=== PATIENT | male | born 1970 | race African-American/Black ===

== ENCOUNTER 2018-03-22 14:17 | Inpatient (IN) | payer SELFPAY ==
[2018-03-22] MEDS ORDERED: Diltiazem 25 MG/5 ML SDV IVPUSH ONE (14:31)
[2018-03-22] MEDS ORDERED: Sodium Chloride 0.9% 10 ML Syringe FLUSH PRN ×2 (14:31→17:54)
[2018-03-22] MEDS ORDERED: Sodium Chloride 0.9% 2.5 ML Syringe FLUSH PRN ×2 (14:31→17:54)
[2018-03-22] MEDS ORDERED: Sodium Chloride 0.9% 1,000 ML IV ONE (14:31)
[2018-03-22] MEDS ORDERED: Enoxaparin 60 MG/0.6 ML Syringe SUBCUT ONE (14:32)
--- NOTE | 2018-03-22 14:37 | EDM.PDOC ---
ED HPI GENERAL MEDICAL PROBLEM - General Chief Complaint: Cardiovascular Problem Stated Complaint: CHEST PAIN Time Seen by Provider: 03/22/18 14:24 - History of Present Illness INITIAL COMMENTS - FREE TEXT/NARRATIVE: HISTORY AND PHYSICAL: History of present illness: The patient is a 47-year-old male who presents with complaints of awakening from a nap approximately 1 hour ago and having palpitations and racing heart. He says that a similar episode happened about 8 years ago and had an echocardiogram and was told that he had an enlarged heart and he was given medication to slow his heart rate down. He was a discharge with blood thinners but no other medications and he said that something happened with his job that he could not get the medications anymore and he has not been on them. He says that he has not had any evaluation for the last 8 years. The patient denies any other existing medical problems and denies large amounts of caffeine use but says he drinks a large amount of alcohol every night. He smokes cigarettes and occasionally smokes marijuana but no other drugs. The patient said when this started he was getting up out of bed and he was not lightheaded or dizzy and has no discomfort shortness of breath chest pain abdominal pain nausea or vomiting with it. He's had no recent systemic complaints such as fevers chills vomiting or diarrhea and has been eating normally. Currently he seems very anxious in the room and says he does feel anxious about what happening but he has no pain or discomfort in his chest. Review of systems: As per history of present illness and below otherwise all systems reviewed and negative. Past medical history: As per history of present illness and as reviewed below otherwise noncontributory. Surgical history: As per history of present illness and as reviewed below otherwise noncontributory. Social history: No reported history of drug or alcohol abuse. Family history: As per history of present illness and as reviewed below otherwise noncontributory. Physical exam: General: Well-developed well-nourished man who is nontoxic and speaking clearly and easily in the ED. He seems somewhat anxious but he is not tremulous. He is very distressed with IV placement and with any manipulation. Vital signs are noted by me HEENT: Atraumatic, normocephalic, pupils reactive, negative for conjunctival pallor or scleral icterus, mucous membranes moist, throat clear, neck supple, nontender, trachea midline. Lungs: Clear to auscultation, breath sounds equal bilaterally, chest nontender. No work of breathing or stridor Heart: S1S2, irregularly irregular with rapid rate ranging from 130s to 150s on my evaluation, no overt murmur is appreciated negative for clicks, rubs, or JVD. Abdomen: Soft, nondistended, nontender. Negative for masses or hepatosplenomegaly. NABS Pelvis: Deferred Genitourinary: Deferred. Rectal: Deferred. Extremities: Atraumatic, negative for cords or calf pain. Neurovascular unremarkable. No pedal edema Neuro: Awake, alert, oriented. Cranial nerves II through XII unremarkable. Cerebellum unremarkable. Motor and sensory unremarkable throughout. Exam nonfocal. Patient is not exhibiting any tremulousness Skin: No evidence of any overt rashes or lesions and turgor is normal, no diaphoresis Diagnostics: EKG CBC CMP INR troponin TSH chest x-ray magnesium level alcohol level Therapeutics: IV O2 monitor IV fluids Cardizem Lovenox Cardizem drip banana bag After the Cardizem bolus the patient's heart rate did dip down to 110s and he says that he has no pressure or trouble taking a deep breath but overall he seems somewhat anxious to me. I will give him some Ativan. On my evaluation his heart rate does bounce around and it will go up to the 120s 130s but not be sustained. I will having a low dose Cardizem drip and plan for admission. I talked to the patient about his need for admission and he states understanding. 1622: Case is discussed with our hospitalist Dr Handley who accepts the patient for admission and is aware that he is on a Cardizem drip. Impression: New A. fib with RVR, history of cardiomyopathy and alcohol use/abuse Definitive disposition and diagnosis as appropriate pending reevaluation and review of above. - Related Data Allergies Allergy/AdvReac Type Severity Reaction Status Date / Time No Known Allergies Allergy Verified 03/22/18 14:28 Home Meds: Home Meds . [No Known Home Meds] 03/22/18 [History] Past Medical History Cardiovascular History: Reports: Other (See Below) Other Cardiovascular History: enlarged heart - Infectious Disease History Infectious Disease History: Reports: Chicken Pox Social & Family History - Family History Family Medical History: Noncontributory - Tobacco Use Smoking Status *Q: Current Every Day Smoker Years of Tobacco use: 20 Packs/Tins Daily: 1 - Recreational Drug Use Recreational Drug Use: No ED ROS GENERAL - Review of Systems Review Of Systems: ROS reveals no pertinent complaints other than HPI. ED EXAM, GENERAL - Physical Exam Exam: See Below (See dictation) Course - Vital Signs Last Recorded V/S: Last Vital Signs Temp 35.3 C 03/22/18 14:26 Pulse 110 H 03/22/18 15:15 Resp 16 03/22/18 15:15 BP 108/70 03/22/18 15:15 Pulse Ox 99 03/22/18 15:15 - Orders/Labs/Meds Orders: Active Orders 24 hr Category Date Time Status Patient Status [ADT] Stat ADT 03/22/18 16:23 Ordered Cardiac Monitoring [RC] . DIRECTED Care 03/22/18 14:31 Active EKG Documentation Completion [RC] STAT Care 03/22/18 14:31 Active Oxygen Therapy, ED [RC] ASDIRECTED Care 03/22/18 14:31 Active Pulse Oximetry [RC] ASDIRECTED Care 03/22/18 14:31 Active Chest 1V Frontal [CR] Stat Exams 03/22/18 14:32 Taken COMPREHENSIVE METABOLIC PN,CMP [CHEM] Stat Lab 03/22/18 14:30 Results ETHANOL BLOOD MEDICAL [CHEM] Stat Lab 03/22/18 14:30 Results MAGNESIUM [CHEM] Stat Lab 03/22/18 14:30 Results TROPONIN I [CHEM] Stat Lab 03/22/18 14:30 Results TSH [CHEM] Stat Lab 03/22/18 14:30 Results Diltiazem 125 mg Med 03/22/18 15:51 Active Sodium Chloride 0.9% [Normal Saline] 100 ml IV NOW Sodium Chloride 0.9% [Saline Flush] Med 03/22/18 14:31 Active 10 ml FLUSH ASDIRECTED PRN Sodium Chloride 0.9% [Saline Flush] Med 03/22/18 14:31 Active 2.5 ml FLUSH ASDIRECTED PRN Saline Lock Insert [OM.PC] Stat Oth 03/22/18 14:31 Ordered Medication Orders Diltiazem HCl 125 mg/ Sodium (Chloride) 125 mls @ 5 mls/hr IV NOW ONE; Protocol Stop: 03/23/18 16:50 Sodium Chloride (Saline Flush) 10 ml FLUSH ASDIRECTED PRN PRN Reason: Keep Vein Open Sodium Chloride (Saline Flush) 2.5 ml FLUSH ASDIRECTED PRN PRN Reason: Keep Vein Open Labs: Laboratory Tests 03/22/18 03/22/18 03/22/18 Range/Units 14:30 14:30 14:30 WBC 12.53 H (4.0-11.0) K/uL RBC 4.73 (4.50-5.90) M/uL Hgb 15.0 (13.0-17.0) g/dL Hct 44.2 (38.0-50.0) % MCV 93.4 (80.0-98.0) fL MCH 31.7 (27.0-32.0) pg MCHC 33.9 (31.0-37.0) g/dL RDW Std Deviation 47.9 (28.0-62.0) fl RDW Coeff of Bakari 14 (11.0-15.0) % Plt Count 174 (150-400) K/uL MPV 10.50 (7.40-12.00) fL Neut % (Auto) 34.9 L (48.0-80.0) % Lymph % (Auto) 56.0 H (16.0-40.0) % [place] % (Auto) 7.8 (0.0-15.0) % Eos % (Auto) 1.1 (0.0-7.0) % Baso % (Auto) 0.2 (0.0-1.5) % Neut # (Auto) 4.4 (1.4-5.7) K/uL Lymph # (Auto) 7.0 H (0.6-2.4) K/uL [place] # (Auto) 1.0 H (0.0-0.8) K/uL Eos # (Auto) 0.1 (0.0-0.7) K/uL Baso # (Auto) 0.0 (0.0-0.1) K/uL Nucleated RBC % 0.0 /100WBC Nucleated RBCs # 0 K/uL INR 1.00 Sodium 139 (136-148) mmol/L Potassium 3.5 (3.5-5.1) mmol/L Chloride 104 (98-107) mmol/L Carbon Dioxide 26.1 (21.0-32.0) mmol/L BUN 9 (7.0-18.0) mg/dL Creatinine 1.3 (0.8-1.3) mg/dL Est Cr Clr Drug Dosing 61.11 mL/min Estimated GFR (MDRD) > 60.0 ml/min Glucose 183 H (74-106) mg/dL Calcium 8.6 (8.5-10.1) mg/dL Magnesium 1.8 (1.8-2.4) mg/dL Total Bilirubin 0.3 (0.2-1.0) mg/dL ALT 44 (14-63) IU/L Alkaline Phosphatase 69 (46-116) U/L Troponin I < 0.050 (0.000-0.056) ng/mL Total Protein 7.6 (6.4-8.2) g/dL Albumin 3.7 (3.4-5.0) g/dL Globulin 3.9 H (2.0-3.5) g/dL Albumin/Globulin Ratio 1.0 L (1.3-2.8) TSH 3rd Generation 2.43 (0.36-3.74) uIU/mL Ethyl Alcohol <3 mg/dL Meds: Medications Generic Name Dose Route Start Last Admin Trade Name Freq PRN Reason Stop Dose Admin Diltiazem HCl 125 mg/ Sodium 125 mls @ 5 mls/hr 03/22/18 15:51 Chloride IV 03/23/18 16:50 NOW ONE Protocol 5 MG/HR Sodium Chloride 10 ml 03/22/18 14:31 Saline Flush FLUSH ASDIRECTED PRN Keep Vein Open Sodium Chloride 2.5 ml 03/22/18 14:31 Saline Flush FLUSH ASDIRECTED PRN Keep Vein Open Discontinued Medications Generic Name Dose Route Start Last Admin Trade Name Freq PRN Reason Stop Dose Admin Diltiazem HCl 20 mg 03/22/18 14:31 03/22/18 14:42 Diltiazem IVPUSH 03/22/18 14:32 20 mg ONETIME ONE Administration Enoxaparin Sodium 60 mg 03/22/18 14:32 03/22/18 14:58 Lovenox SUBCUT 03/22/18 14:33 60 mg ONETIME ONE Administration Sodium Chloride 1,000 mls @ 999 mls/hr 03/22/18 14:31 03/22/18 14:43 Normal Saline IV 03/22/18 15:31 999 mls/hr STAT ONE Administration Lorazepam 1 mg 03/22/18 15:51 03/22/18 16:13 Ativan IVPUSH 03/22/18 15:52 1 mg ONETIME ONE Administration Departure - Departure Time of Disposition: 16:25 Disposition: Refer to Observation Condition: Good Clinical Impression: Atrial fibrillation with RVR Referrals: PCP,None [Primary Care Provider] - Forms: ED Department Discharge - My Orders Last 24 Hours: My Active Orders 03/22/18 14:30 COMPREHENSIVE METABOLIC PN,CMP [CHEM] Stat ETHANOL BLOOD MEDICAL [CHEM] Stat MAGNESIUM [CHEM] Stat TROPONIN I [CHEM] Stat TSH [CHEM] Stat 03/22/18 14:31 Cardiac Monitoring [RC] . DIRECTED EKG Documentation Completion [RC] STAT Oxygen Therapy, ED [RC] ASDIRECTED Pulse Oximetry [RC] ASDIRECTED Sodium Chloride 0.9% [Saline Flush] 10 ml FLUSH ASDIRECTED PRN Sodium Chloride 0.9% [Saline Flush] 2.5 ml FLUSH ASDIRECTED PRN Saline Lock Insert [OM.PC] Stat 03/22/18 14:32 Chest 1V Frontal [CR] Stat 03/22/18 15:51 Diltiazem 125 mg Sodium Chloride 0.9% [Normal Saline] 100 ml IV NOW 03/22/18 16:23 Patient Status [ADT] Stat - Assessment/Plan Last 24 Hours: My Active Orders 03/22/18 14:30 COMPREHENSIVE METABOLIC PN,CMP [CHEM] Stat ETHANOL BLOOD MEDICAL [CHEM] Stat MAGNESIUM [CHEM] Stat TROPONIN I [CHEM] Stat TSH [CHEM] Stat 03/22/18 14:31 Cardiac Monitoring [RC] . DIRECTED EKG Documentation Completion [RC] STAT Oxygen Therapy, ED [RC] ASDIRECTED Pulse Oximetry [RC] ASDIRECTED Sodium Chloride 0.9% [Saline Flush] 10 ml FLUSH ASDIRECTED PRN Sodium Chloride 0.9% [Saline Flush] 2.5 ml FLUSH ASDIRECTED PRN Saline Lock Insert [OM.PC] Stat 03/22/18 14:32 Chest 1V Frontal [CR] Stat 03/22/18 15:51 Diltiazem 125 mg Sodium Chloride 0.9% [Normal Saline] 100 ml IV NOW 03/22/18 16:23 Patient Status [ADT] Stat
[2018-03-22 15:43] LABS: CHLORIDE,CL 104 mmol/L (98-107); SODIUM,NA 139 mmol/L (136-148)
[2018-03-22] MEDS ORDERED: LORazepam 2 MG/ML SDV IVPUSH ONE (15:51)
[2018-03-22] MEDS ORDERED: Diltiazem 125 MG in Sodium Chloride 0.9% 100 ML IV ONE (15:51)
[2018-03-22] MEDS ORDERED: MVI, Adult with Vitamin K 10 ML, Thiamine 100 MG, Folic Acid 1 MG in Sodium Chloride 0.... IV ONE ×4 (16:26)
--- NOTE | 2018-03-22 16:49 | CR ---
EXAM DATE: 03/22/18 PATIENT'S AGE: 47 Patient: CAMI MISHRA Facility: [place], [place] Site . Site : [id number] Study: XRay Chest [id number] 3:05:33 PM Ordering Physician: Enriqueta Butler Final Report: INDICATION: Atrial fibrillation TECHNIQUE: Chest 1 view COMPARISON: None FINDINGS: Cardiovascular and mediastinum: Heart size and vasculature are normal in caliber and appearance. Lungs and pleural spaces: Lungs are clear. No sign of infiltrate or mass. No sign of pleural effusion. No pneumothorax. Bones and soft tissues: No significant findings. IMPRESSION: No acute or significant findings. Dictated by Jong iKm MD @ Mar 22 2018 3:43PM (Electronic Signature) Report Signed by Proxy. VJ
[2018-03-22] MEDS ORDERED: Albuterol/Ipratropium 3.0-0.5 MG/3 ML Neb Soln NEB PRN (17:54)
[2018-03-22] MEDS ORDERED: Acetaminophen 325 MG Tab PO PRN (17:54)
[2018-03-22] MEDS ORDERED: Morphine 2 MG/ML Syringe IVPUSH PRN (17:54)
--- NOTE | 2018-03-22 20:20 | PCM.HP ---
H&P History of Present Illness - General Date of Service: 03/22/18 Admit Problem/Dx: Admission Diagnosis/Problem Admission Diagnosis/Problem Atrial fibrillation Source of Information: Patient History Limitations: Reports: No Limitations - History of Present Illness Initial Comments - Free Text/Narative: Patient 47 years old man presented to emergency room because he felt his heart was beating very fast and he was feeling dizziness , sweaty , lightheaded. Patient also had sensation of pressure in the chest for about half an hour 4and 10 in intensity, no radiation, which resolved. Patient smokes pack of cigarettes a day for the past 20 years and he drinks about 1/2-1 pint of vodka a day for the past 30 years. 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 Onset of Symptoms: Reports: Today Duration of Symptoms: Reports: Hour(s): Location: Reports: Chest - Related Data Allergies/Adverse Reactions: Allergies Allergy/AdvReac Type Severity Reaction Status Date / Time No Known Allergies Allergy Verified 03/22/18 14:28 Home Medications: Home Meds . [No Known Home Meds] 03/22/18 [History] Past Medical History Cardiovascular History: Reports: Other (See Below) Other Cardiovascular History: enlarged heart Respiratory History: Reports: Other (See Below) Other Respiratory History: current everyday smoker - Infectious Disease History Infectious Disease History: Reports: Chicken Pox Social & Family History - Family History Family Medical History: Noncontributory - Tobacco Use Smoking Status *Q: Current Every Day Smoker Years of Tobacco use: 20 Packs/Tins Daily: 1 - Recreational Drug Use Recreational Drug Use: No H&P Review of Systems - Review of Systems: Review Of Systems: See Below General: Reports: No Symptoms HEENT: Reports: No Symptoms Pulmonary: Reports: Shortness of Breath Cardiovascular: Reports: Dyspnea on Exertion, Lightheadedness. Denies: Chest Pain Gastrointestinal: Reports: No Symptoms Genitourinary: Reports: No Symptoms Musculoskeletal: Reports: No Symptoms Skin: Reports: No Symptoms Exam - Exam Exam: See Below - Vital Signs Vital Signs: Last Vital Signs Temp 97.8 F 03/22/18 18:20 Pulse 114 H 03/22/18 19:00 Resp 20 03/22/18 19:00 BP 104/68 03/22/18 19:00 Pulse Ox 97 03/22/18 19:00 Weight: 160 lb 11.2 oz - Exam General: Alert, Oriented HEENT: Conjunctiva Clear, Hearing Intact Neck: Supple, Trachea Midline Lungs: Clear to Auscultation Cardiovascular: Normal S1, Normal S2, Irregular Rhythm, Tachycardia GI/Abdominal Exam: Normal Bowel Sounds (Male) Exam: No Hernia, Normal Inspection Back Exam: Normal Inspection Extremities: Normal Inspection - Patient Data Lab Results Last 24 hrs: Laboratory Results - last 24 hr 03/22/18 03/22/18 03/22/18 Range/Units 14:30 14:30 14:30 WBC 12.53 H (4.0-11.0) K/uL RBC 4.73 (4.50-5.90) M/uL Hgb 15.0 (13.0-17.0) g/dL Hct 44.2 (38.0-50.0) % MCV 93.4 (80.0-98.0) fL MCH 31.7 (27.0-32.0) pg MCHC 33.9 (31.0-37.0) g/dL RDW Std Deviation 47.9 (28.0-62.0) fl RDW Coeff of Bakari 14 (11.0-15.0) % Plt Count 174 (150-400) K/uL MPV 10.50 (7.40-12.00) fL Neut % (Auto) 34.9 L (48.0-80.0) % Lymph % (Auto) 56.0 H (16.0-40.0) % Hand % (Auto) 7.8 (0.0-15.0) % Eos % (Auto) 1.1 (0.0-7.0) % Baso % (Auto) 0.2 (0.0-1.5) % Neut # (Auto) 4.4 (1.4-5.7) K/uL Lymph # (Auto) 7.0 H (0.6-2.4) K/uL Hand # (Auto) 1.0 H (0.0-0.8) K/uL Eos # (Auto) 0.1 (0.0-0.7) K/uL Baso # (Auto) 0.0 (0.0-0.1) K/uL Nucleated RBC % 0.0 /100WBC Nucleated RBCs # 0 K/uL INR 1.00 Sodium 139 (136-148) mmol/L Potassium 3.5 (3.5-5.1) mmol/L Chloride 104 (98-107) mmol/L Carbon Dioxide 26.1 (21.0-32.0) mmol/L BUN 9 (7.0-18.0) mg/dL Creatinine 1.3 (0.8-1.3) mg/dL Est Cr Clr Drug Dosing 61.11 mL/min Estimated GFR (MDRD) > 60.0 ml/min Glucose 183 H (74-106) mg/dL Calcium 8.6 (8.5-10.1) mg/dL Magnesium 1.8 (1.8-2.4) mg/dL Total Bilirubin 0.3 (0.2-1.0) mg/dL AST 31 (15-37) IU/L ALT 44 (14-63) IU/L Alkaline Phosphatase 69 (46-116) U/L Troponin I < 0.050 (0.000-0.056) ng/mL Total Protein 7.6 (6.4-8.2) g/dL Albumin 3.7 (3.4-5.0) g/dL Globulin 3.9 H (2.0-3.5) g/dL Albumin/Globulin Ratio 1.0 L (1.3-2.8) TSH 3rd Generation 2.43 (0.36-3.74) uIU/mL Ethyl Alcohol <3 mg/dL Result Diagrams: 03/22/18 14:30 03/22/18 14:30 EKG INTERPRETATION EKG Date: 03/22/18 Time: 01:39 Rhythm: A-Fib QRS: Normal ST-T: Normal - Problem List (1) Chest tightness or pressure SNOMED Code(s): 98363580 ICD Code: R07.89 - OTHER CHEST PAIN Status: Acute Current Visit: Yes (2) Atrial fibrillation with RVR SNOMED Code(s): 704222457360240 ICD Code: I48.91 - UNSPECIFIED ATRIAL FIBRILLATION Status: Acute Current Visit: Yes (3) Alcohol abuse SNOMED Code(s): 12697815 ICD Code: F10.10 - ALCOHOL ABUSE, UNCOMPLICATED Status: Acute Current Visit: Yes Problem List Initiated/Reviewed/Updated: Yes Orders Last 24hrs: Active Orders 24 hr Category Date Time Status Patient Status [ADT] Stat ADT 03/22/18 16:41 Active Cardiac Monitoring [RC] . DIRECTED Care 03/22/18 14:31 Active RT Aerosol Therapy [RC] ASDIRECTED Care 03/22/18 17:57 Active 2 Gram Sodium Diet [DIET] Diet 03/22/18 Dinner Active Echo 2D wo Cont [US] Stat Exams 03/22/18 17:58 Ordered CBC W/O DIFF,HEMOGRAM [HEME] AM Lab 03/23/18 05:11 Ordered CBC W/O DIFF,HEMOGRAM [HEME] AM Lab 03/24/18 05:11 Ordered CBC W/O DIFF,HEMOGRAM [HEME] AM Lab 03/25/18 05:11 Ordered CBC W/O DIFF,HEMOGRAM [HEME] AM Lab 03/26/18 05:11 Ordered COMPREHENSIVE METABOLIC PN,CMP [CHEM] AM Lab 03/23/18 05:11 Ordered COMPREHENSIVE METABOLIC PN,CMP [CHEM] AM Lab 03/24/18 05:11 Ordered COMPREHENSIVE METABOLIC PN,CMP [CHEM] AM Lab 03/25/18 05:11 Ordered COMPREHENSIVE METABOLIC PN,CMP [CHEM] AM Lab 03/26/18 05:11 Ordered COMPREHENSIVE METABOLIC PN,CMP [CHEM] AM Lab 03/27/18 05:11 Ordered DRUG SCREEN, URINE [URCHEM] Routine Lab 03/22/18 18:01 Ordered TROPONIN I [CHEM] Q6H Lab 03/22/18 20:30 Ordered TROPONIN I [CHEM] Q6H Lab 03/23/18 02:30 Ordered UA W/O MICROSCOPIC [URIN] Routine Lab 03/22/18 18:01 Ordered Acetaminophen [Tylenol] Med 03/22/18 17:54 Active 650 mg PO Q4H PRN Albuterol/Ipratropium [DuoNeb 3.0-0.5 MG/3 ML] Med 03/22/18 17:54 Active 3 ml NEB Q4HRRT PRN Diltiazem 125 mg Med 03/22/18 15:51 Active Sodium Chloride 0.9% [Normal Saline] 100 ml IV NOW MVI, Adult with Vitamin K [Infuvite Adult] 10 ml Med 03/22/18 16:26 Active Thiamine [Vitamin B-1] 100 mg Folic Acid 1 mg Sodium Chloride 0.9% [Normal Saline] 1,000 ml IV ONETIME Morphine Med 03/22/18 17:54 Active 2 mg IVPUSH Q2H PRN Sodium Chloride 0.9% [Saline Flush] Med 03/22/18 14:31 Active 10 ml FLUSH ASDIRECTED PRN Sodium Chloride 0.9% [Saline Flush] Med 03/22/18 17:54 Active 10 ml FLUSH ASDIRECTED PRN Sodium Chloride 0.9% [Saline Flush] Med 03/22/18 14:31 Active 2.5 ml FLUSH ASDIRECTED PRN Sodium Chloride 0.9% [Saline Flush] Med 03/22/18 17:54 Active 2.5 ml FLUSH ASDIRECTED PRN Peripheral IV Insertion Adult [OM.PC] Routine Oth 03/22/18 17:54 Ordered Saline Lock Insert [OM.PC] Stat Oth 03/22/18 14:31 Ordered Sequential Compression Device [OM.PC] Per Unit Routine Oth 03/22/18 17:55 Ordered Resuscitation Status Routine Resus Stat 03/22/18 17:54 Ordered Medication Orders Acetaminophen (Tylenol) 650 mg PO Q4H PRN PRN Reason: Pain (Mild 1-3)/fever Albuterol/Ipratropium (Duoneb 3.0-0.5 Mg/3 Ml) 3 ml NEB Q4HRRT PRN PRN Reason: Shortness Of Breath/wheezing Diltiazem HCl 125 mg/ Sodium (Chloride) 125 mls @ 5 mls/hr IV NOW ONE; Protocol Stop: 03/23/18 16:50 Last Admin: 03/22/18 16:56 Dose: 5 mg/hr, 5 mls/hr Multivitamins/Minerals 10 ml/Thiamine HCl 100 mg/ Folic Acid 1 mg/ Sodium Chloride 1,011.2 mls @ 125 mls/hr IV ONETIME ONE Stop: 03/23/18 00:31 Last Admin: 03/22/18 16:53 Dose: 125 mls/hr Morphine Sulfate (Morphine) 2 mg IVPUSH Q2H PRN PRN Reason: Pain (severe 7-10) Stop: 03/23/18 17:56 Sodium Chloride (Saline Flush) 10 ml FLUSH ASDIRECTED PRN PRN Reason: Keep Vein Open Sodium Chloride (Saline Flush) 2.5 ml FLUSH ASDIRECTED PRN PRN Reason: Keep Vein Open Sodium Chloride (Saline Flush) 10 ml FLUSH ASDIRECTED PRN PRN Reason: Keep Vein Open Sodium Chloride (Saline Flush) 2.5 ml FLUSH ASDIRECTED PRN PRN Reason: Keep Vein Open Assessment and plan A. fib with RVR Alcohol abuse Chest tightness-resolved Tobacco abuse Plan Will admit patient to observation to telemetry ICU Blaise alexander Cardiac echo, lipid profile, hemoglobin A1c. Cardiology consult Follow-up 3 sets of troponins 6 hours Pressure was consult more than 5 minutes to stop smoking and to stop drinking alcohol
[2018-03-22] MEDS ORDERED: Metoprolol Tartrate 5 MG/5 ML SDV IVPUSH ONE (20:52)
[2018-03-22] MEDS ORDERED: Aspirin 325 MG Tab PO ONE (22:10)
[2018-03-22] MEDS ORDERED: Clopidogrel 75 MG Tab PO ONE (22:33)
[2018-03-22] MEDS ORDERED: atorvaSTATin 40 MG Tab PO ONE (22:33)
[2018-03-22] MEDS ORDERED: Heparin Sodium 5,000 Units/ML Vial IVPUSH ONE (22:54)
[2018-03-22] MEDS: Famotidine 20 MG/2 ML SDV IVPUSH SCH (22:58)
[2018-03-22] MEDS: Heparin Sod,Pork In 0.45% Nacl 25,000 UNIT/500 ML IV.SOLN IV SCH (23:16)
[2018-03-23] MEDS ORDERED: Metoprolol Tartrate 5 MG/5 ML SDV IVPUSH ONE ×2 (04:00→22:00)
[2018-03-23 06:00] LABS: CHLORIDE,CL 107 mmol/L (98-107); SODIUM,NA 138 mmol/L (136-148)
[2018-03-23] MEDS ORDERED: Metoprolol Tartrate 50 MG Tab PO SCH (08:00)
[2018-03-23] MEDS ORDERED: atorvaSTATin 40 MG Tab PO ONE (08:25)
[2018-03-23] MEDS: Clopidogrel 75 MG Tab PO SCH (10:15)
[2018-03-23] MEDS: Aspirin 325 MG Tab PO SCH (10:15)
[2018-03-23] MEDS: Famotidine 20 MG/2 ML SDV IVPUSH SCH (10:15)
[2018-03-23] MEDS: Clotrimazole 1% Crm 30 GM Tube TOP SCH ×3 (10:33→21:05)
[2018-03-23] MEDS ORDERED: Furosemide 40 MG/4 ML VIAL IVPUSH ONE ×3 (12:28→22:11)
--- NOTE | 2018-03-23 12:49 | PCM.PN ---
- General Info Date of Service: 03/23/18 Subjective Update: Patient had some sortness of breath today . His troponins were trending down . HR not well controlled. Cardiology recommended lasix 40 mg iv one dose and he was started on metoprolol 50 mgpo q 8 h . HR still not controlled . As per tax associate attorney his EF is 60 percent and his elevations in troponins is due to increase oxygen demand. BNP 385. - Review of Systems General: Reports: No Symptoms HEENT: Reports: No Symptoms Pulmonary: Reports: Shortness of Breath Cardiovascular: Reports: No Symptoms Gastrointestinal: Reports: No Symptoms Genitourinary: Reports: No Symptoms Musculoskeletal: Reports: No Symptoms Skin: Reports: No Symptoms Neurological: Reports: No Symptoms Psychiatric: Reports: No Symptoms - Patient Data Vitals - Most Recent: Last Vital Signs Temp 97.7 F 03/23/18 12:00 Pulse 117 H 03/23/18 12:00 Resp 20 03/23/18 12:00 BP 133/88 03/23/18 12:00 Pulse Ox 95 03/23/18 12:00 Weight - Most Recent: 163 lb 6.4 oz I&O - Last 24 Hours: Intake & Output 03/22/18 03/23/18 03/23/18 22:59 06:59 14:59 Intake Total 1477 Output Total 450 Balance 1027 Lab Results Last 24 Hours: Laboratory Results - last 24 hr 03/22/18 03/22/18 03/22/18 Range/Units 14:30 14:30 14:30 WBC 12.53 H (4.0-11.0) K/uL RBC 4.73 (4.50-5.90) M/uL Hgb 15.0 (13.0-17.0) g/dL Hct 44.2 (38.0-50.0) % MCV 93.4 (80.0-98.0) fL MCH 31.7 (27.0-32.0) pg MCHC 33.9 (31.0-37.0) g/dL RDW Std Deviation 47.9 (28.0-62.0) fl RDW Coeff of Bakari 14 (11.0-15.0) % Plt Count 174 (150-400) K/uL MPV 10.50 (7.40-12.00) fL Neut % (Auto) 34.9 L (48.0-80.0) % Lymph % (Auto) 56.0 H (16.0-40.0) % Gregg % (Auto) 7.8 (0.0-15.0) % Eos % (Auto) 1.1 (0.0-7.0) % Baso % (Auto) 0.2 (0.0-1.5) % Neut # (Auto) 4.4 (1.4-5.7) K/uL Lymph # (Auto) 7.0 H (0.6-2.4) K/uL Gregg # (Auto) 1.0 H (0.0-0.8) K/uL Eos # (Auto) 0.1 (0.0-0.7) K/uL Baso # (Auto) 0.0 (0.0-0.1) K/uL Nucleated RBC % 0.0 /100WBC Nucleated RBCs # 0 K/uL INR 1.00 APTT (18.6-31.3) SEC Sodium 139 (136-148) mmol/L Potassium 3.5 (3.5-5.1) mmol/L Chloride 104 (98-107) mmol/L Carbon Dioxide 26.1 (21.0-32.0) mmol/L BUN 9 (7.0-18.0) mg/dL Creatinine 1.3 (0.8-1.3) mg/dL Est Cr Clr Drug Dosing 61.11 mL/min Estimated GFR (MDRD) > 60.0 ml/min Glucose 183 H (74-106) mg/dL Hemoglobin A1c (4.5-6.2) % Calcium 8.6 (8.5-10.1) mg/dL Magnesium 1.8 (1.8-2.4) mg/dL Total Bilirubin 0.3 (0.2-1.0) mg/dL AST 31 (15-37) IU/L ALT 44 (14-63) IU/L Alkaline Phosphatase 69 (46-116) U/L Troponin I < 0.050 (0.000-0.056) ng/mL Total Protein 7.6 (6.4-8.2) g/dL Albumin 3.7 (3.4-5.0) g/dL Globulin 3.9 H (2.0-3.5) g/dL Albumin/Globulin Ratio 1.0 L (1.3-2.8) Triglycerides (0-200) mg/dL Cholesterol (50-200) mg/dL LDL Cholesterol, Calc (60-180) mg/dL VLDL Cholesterol (5-55) mg/dL HDL Cholesterol (40-60) mg/dL Cholesterol/HDL Ratio (3.3-6.0) TSH 3rd Generation 2.43 (0.36-3.74) uIU/mL Urine Color Urine Appearance Urine pH (5.0-8.0) Ur Specific [place] (1.001-1.035) Urine Protein (NEGATIVE) mg/dL Urine Glucose (UA) (NEGATIVE) mg/dL Urine Ketones (NEGATIVE) mg/dL Urine Occult Blood (NEGATIVE) Urine Nitrite (NEGATIVE) Urine Bilirubin (NEGATIVE) Urine Urobilinogen (<2.0) EU/dL Ur Leukocyte Esterase (NEGATIVE) Urine Opiates Screen (NEGATIVE) Ur Oxycodone Screen (NEGATIVE) Urine Methadone Screen (NEGATIVE) Ur Barbiturates Screen (NEGATIVE) Ur Phencyclidine Scrn (NEGATIVE) Ur Amphetamine Screen (NEGATIVE) U Methamphetamines Scrn (NEGATIVE) U Benzodiazepines Scrn (NEGATIVE) U Cocaine Metab Screen (NEGATIVE) U Marijuana (THC) Screen (NEGATIVE) Ethyl Alcohol <3 mg/dL 03/22/18 03/22/18 03/22/18 Range/Units 20:10 20:10 21:25 WBC (4.0-11.0) K/uL RBC (4.50-5.90) M/uL Hgb (13.0-17.0) g/dL Hct (38.0-50.0) % MCV (80.0-98.0) fL MCH (27.0-32.0) pg MCHC (31.0-37.0) g/dL RDW Std Deviation (28.0-62.0) fl RDW Coeff of Bakari (11.0-15.0) % Plt Count (150-400) K/uL MPV (7.40-12.00) fL Neut % (Auto) (48.0-80.0) % Lymph % (Auto) (16.0-40.0) % Gregg % (Auto) (0.0-15.0) % Eos % (Auto) (0.0-7.0) % Baso % (Auto) (0.0-1.5) % Neut # (Auto) (1.4-5.7) K/uL Lymph # (Auto) (0.6-2.4) K/uL Gregg # (Auto) (0.0-0.8) K/uL Eos # (Auto) (0.0-0.7) K/uL Baso # (Auto) (0.0-0.1) K/uL Nucleated RBC % /100WBC Nucleated RBCs # K/uL INR APTT (18.6-31.3) SEC Sodium (136-148) mmol/L Potassium (3.5-5.1) mmol/L Chloride (98-107) mmol/L Carbon Dioxide (21.0-32.0) mmol/L BUN (7.0-18.0) mg/dL Creatinine (0.8-1.3) mg/dL Est Cr Clr Drug Dosing mL/min Estimated GFR (MDRD) ml/min Glucose (74-106) mg/dL Hemoglobin A1c (4.5-6.2) % Calcium (8.5-10.1) mg/dL Magnesium (1.8-2.4) mg/dL Total Bilirubin (0.2-1.0) mg/dL AST (15-37) IU/L ALT (14-63) IU/L Alkaline Phosphatase (46-116) U/L Troponin I 0.273 H* (0.000-0.056) ng/mL Total Protein (6.4-8.2) g/dL Albumin (3.4-5.0) g/dL Globulin (2.0-3.5) g/dL Albumin/Globulin Ratio (1.3-2.8) Triglycerides (0-200) mg/dL Cholesterol (50-200) mg/dL LDL Cholesterol, Calc (60-180) mg/dL VLDL Cholesterol (5-55) mg/dL HDL Cholesterol (40-60) mg/dL Cholesterol/HDL Ratio (3.3-6.0) TSH 3rd Generation (0.36-3.74) uIU/mL Urine Color YELLOW Urine Appearance CLEAR Urine pH 6.0 (5.0-8.0) Ur Specific [place] 1.025 (1.001-1.035) Urine Protein 100 (NEGATIVE) mg/dL Urine Glucose (UA) NEGATIVE (NEGATIVE) mg/dL Urine Ketones NEGATIVE (NEGATIVE) mg/dL Urine Occult Blood NEGATIVE (NEGATIVE) Urine Nitrite NEGATIVE (NEGATIVE) Urine Bilirubin NEGATIVE (NEGATIVE) Urine Urobilinogen 0.2 (<2.0) EU/dL Ur Leukocyte Esterase NEGATIVE (NEGATIVE) Urine Opiates Screen NEGATIVE (NEGATIVE) Ur Oxycodone Screen NEGATIVE (NEGATIVE) Urine Methadone Screen NEGATIVE (NEGATIVE) Ur Barbiturates Screen NEGATIVE (NEGATIVE) Ur Phencyclidine Scrn NEGATIVE (NEGATIVE) Ur Amphetamine Screen NEGATIVE (NEGATIVE) U Methamphetamines Scrn NEGATIVE (NEGATIVE) U Benzodiazepines Scrn NEGATIVE (NEGATIVE) U Cocaine Metab Screen NEGATIVE (NEGATIVE) U Marijuana (THC) Screen NEGATIVE (NEGATIVE) Ethyl Alcohol mg/dL 03/22/18 03/23/18 03/23/18 Range/Units 22:48 02:35 05:30 WBC 9.27 (4.0-11.0) K/uL RBC 4.26 L (4.50-5.90) M/uL Hgb 13.3 (13.0-17.0) g/dL Hct 39.6 (38.0-50.0) % MCV 93.0 (80.0-98.0) fL MCH 31.2 (27.0-32.0) pg MCHC 33.6 (31.0-37.0) g/dL RDW Std Deviation 47.1 (28.0-62.0) fl RDW Coeff of Bakari 14 (11.0-15.0) % Plt Count 146 L (150-400) K/uL MPV 10.10 (7.40-12.00) fL Neut % (Auto) (48.0-80.0) % Lymph % (Auto) (16.0-40.0) % Gregg % (Auto) (0.0-15.0) % Eos % (Auto) (0.0-7.0) % Baso % (Auto) (0.0-1.5) % Neut # (Auto) (1.4-5.7) K/uL Lymph # (Auto) (0.6-2.4) K/uL Gregg # (Auto) (0.0-0.8) K/uL Eos # (Auto) (0.0-0.7) K/uL Baso # (Auto) (0.0-0.1) K/uL Nucleated RBC % 0.0 /100WBC Nucleated RBCs # 0 K/uL INR APTT 29.3 (18.6-31.3) SEC Sodium (136-148) mmol/L Potassium (3.5-5.1) mmol/L Chloride (98-107) mmol/L Carbon Dioxide (21.0-32.0) mmol/L BUN (7.0-18.0) mg/dL Creatinine (0.8-1.3) mg/dL Est Cr Clr Drug Dosing mL/min Estimated GFR (MDRD) ml/min Glucose (74-106) mg/dL Hemoglobin A1c (4.5-6.2) % Calcium (8.5-10.1) mg/dL Magnesium (1.8-2.4) mg/dL Total Bilirubin (0.2-1.0) mg/dL AST (15-37) IU/L ALT (14-63) IU/L Alkaline Phosphatase (46-116) U/L Troponin I 0.311 H* (0.000-0.056) ng/mL Total Protein (6.4-8.2) g/dL Albumin (3.4-5.0) g/dL Globulin (2.0-3.5) g/dL Albumin/Globulin Ratio (1.3-2.8) Triglycerides (0-200) mg/dL Cholesterol (50-200) mg/dL LDL Cholesterol, Calc (60-180) mg/dL VLDL Cholesterol (5-55) mg/dL HDL Cholesterol (40-60) mg/dL Cholesterol/HDL Ratio (3.3-6.0) TSH 3rd Generation (0.36-3.74) uIU/mL Urine Color Urine Appearance Urine pH (5.0-8.0) Ur Specific [place] (1.001-1.035) Urine Protein (NEGATIVE) mg/dL Urine Glucose (UA) (NEGATIVE) mg/dL Urine Ketones (NEGATIVE) mg/dL Urine Occult Blood (NEGATIVE) Urine Nitrite (NEGATIVE) Urine Bilirubin (NEGATIVE) Urine Urobilinogen (<2.0) EU/dL Ur Leukocyte Esterase (NEGATIVE) Urine Opiates Screen (NEGATIVE) Ur Oxycodone Screen (NEGATIVE) Urine Methadone Screen (NEGATIVE) Ur Barbiturates Screen (NEGATIVE) Ur Phencyclidine Scrn (NEGATIVE) Ur Amphetamine Screen (NEGATIVE) U Methamphetamines Scrn (NEGATIVE) U Benzodiazepines Scrn (NEGATIVE) U Cocaine Metab Screen (NEGATIVE) U Marijuana (THC) Screen (NEGATIVE) Ethyl Alcohol mg/dL 03/23/18 03/23/18 03/23/18 Range/Units 05:30 05:30 05:30 WBC (4.0-11.0) K/uL RBC (4.50-5.90) M/uL Hgb (13.0-17.0) g/dL Hct (38.0-50.0) % MCV (80.0-98.0) fL MCH (27.0-32.0) pg MCHC (31.0-37.0) g/dL RDW Std Deviation (28.0-62.0) fl RDW Coeff of Bakari (11.0-15.0) % Plt Count (150-400) K/uL MPV (7.40-12.00) fL Neut % (Auto) (48.0-80.0) % Lymph % (Auto) (16.0-40.0) % Gregg % (Auto) (0.0-15.0) % Eos % (Auto) (0.0-7.0) % Baso % (Auto) (0.0-1.5) % Neut # (Auto) (1.4-5.7) K/uL Lymph # (Auto) (0.6-2.4) K/uL Gregg # (Auto) (0.0-0.8) K/uL Eos # (Auto) (0.0-0.7) K/uL Baso # (Auto) (0.0-0.1) K/uL Nucleated RBC % /100WBC Nucleated RBCs # K/uL INR APTT (18.6-31.3) SEC Sodium 138 (136-148) mmol/L Potassium 3.9 (3.5-5.1) mmol/L Chloride 107 (98-107) mmol/L Carbon Dioxide 26.1 (21.0-32.0) mmol/L BUN 7 (7.0-18.0) mg/dL Creatinine 1.0 (0.8-1.3) mg/dL Est Cr Clr Drug Dosing 82.41 mL/min Estimated GFR (MDRD) > 60.0 ml/min Glucose 103 (74-106) mg/dL Hemoglobin A1c 6.0 (4.5-6.2) % Calcium 8.5 (8.5-10.1) mg/dL Magnesium (1.8-2.4) mg/dL Total Bilirubin 0.4 (0.2-1.0) mg/dL AST 18 (15-37) IU/L ALT 32 (14-63) IU/L Alkaline Phosphatase 59 (46-116) U/L Troponin I (0.000-0.056) ng/mL Total Protein 6.4 (6.4-8.2) g/dL Albumin 3.1 L (3.4-5.0) g/dL Globulin 3.3 (2.0-3.5) g/dL Albumin/Globulin Ratio 0.9 L (1.3-2.8) Triglycerides 261 H (0-200) mg/dL Cholesterol 157 (50-200) mg/dL LDL Cholesterol, Calc 77 (60-180) mg/dL VLDL Cholesterol 52 (5-55) mg/dL HDL Cholesterol 28 L (40-60) mg/dL Cholesterol/HDL Ratio 5.6 (3.3-6.0) TSH 3rd Generation (0.36-3.74) uIU/mL Urine Color Urine Appearance Urine pH (5.0-8.0) Ur Specific [place] (1.001-1.035) Urine Protein (NEGATIVE) mg/dL Urine Glucose (UA) (NEGATIVE) mg/dL Urine Ketones (NEGATIVE) mg/dL Urine Occult Blood (NEGATIVE) Urine Nitrite (NEGATIVE) Urine Bilirubin (NEGATIVE) Urine Urobilinogen (<2.0) EU/dL Ur Leukocyte Esterase (NEGATIVE) Urine Opiates Screen (NEGATIVE) Ur Oxycodone Screen (NEGATIVE) Urine Methadone Screen (NEGATIVE) Ur Barbiturates Screen (NEGATIVE) Ur Phencyclidine Scrn (NEGATIVE) Ur Amphetamine Screen (NEGATIVE) U Methamphetamines Scrn (NEGATIVE) U Benzodiazepines Scrn (NEGATIVE) U Cocaine Metab Screen (NEGATIVE) U Marijuana (THC) Screen (NEGATIVE) Ethyl Alcohol mg/dL 03/23/18 03/23/18 03/23/18 Range/Units 05:30 05:30 09:12 WBC (4.0-11.0) K/uL RBC (4.50-5.90) M/uL Hgb (13.0-17.0) g/dL Hct (38.0-50.0) % MCV (80.0-98.0) fL MCH (27.0-32.0) pg MCHC (31.0-37.0) g/dL RDW Std Deviation (28.0-62.0) fl RDW Coeff of Bakari (11.0-15.0) % Plt Count (150-400) K/uL MPV (7.40-12.00) fL Neut % (Auto) (48.0-80.0) % Lymph % (Auto) (16.0-40.0) % Gregg % (Auto) (0.0-15.0) % Eos % (Auto) (0.0-7.0) % Baso % (Auto) (0.0-1.5) % Neut # (Auto) (1.4-5.7) K/uL Lymph # (Auto) (0.6-2.4) K/uL Gregg # (Auto) (0.0-0.8) K/uL Eos # (Auto) (0.0-0.7) K/uL Baso # (Auto) (0.0-0.1) K/uL Nucleated RBC % /100WBC Nucleated RBCs # K/uL INR 1.06 APTT 50.1 H (18.6-31.3) SEC Sodium (136-148) mmol/L Potassium (3.5-5.1) mmol/L Chloride (98-107) mmol/L Carbon Dioxide (21.0-32.0) mmol/L BUN (7.0-18.0) mg/dL Creatinine (0.8-1.3) mg/dL Est Cr Clr Drug Dosing mL/min Estimated GFR (MDRD) ml/min Glucose (74-106) mg/dL Hemoglobin A1c (4.5-6.2) % Calcium (8.5-10.1) mg/dL Magnesium (1.8-2.4) mg/dL Total Bilirubin (0.2-1.0) mg/dL AST (15-37) IU/L ALT (14-63) IU/L Alkaline Phosphatase (46-116) U/L Troponin I 0.187 H* (0.000-0.056) ng/mL Total Protein (6.4-8.2) g/dL Albumin (3.4-5.0) g/dL Globulin (2.0-3.5) g/dL Albumin/Globulin Ratio (1.3-2.8) Triglycerides (0-200) mg/dL Cholesterol (50-200) mg/dL LDL Cholesterol, Calc (60-180) mg/dL VLDL Cholesterol (5-55) mg/dL HDL Cholesterol (40-60) mg/dL Cholesterol/HDL Ratio (3.3-6.0) TSH 3rd Generation (0.36-3.74) uIU/mL Urine Color Urine Appearance Urine pH (5.0-8.0) Ur Specific [place] (1.001-1.035) Urine Protein (NEGATIVE) mg/dL Urine Glucose (UA) (NEGATIVE) mg/dL Urine Ketones (NEGATIVE) mg/dL Urine Occult Blood (NEGATIVE) Urine Nitrite (NEGATIVE) Urine Bilirubin (NEGATIVE) Urine Urobilinogen (<2.0) EU/dL Ur Leukocyte Esterase (NEGATIVE) Urine Opiates Screen (NEGATIVE) Ur Oxycodone Screen (NEGATIVE) Urine Methadone Screen (NEGATIVE) Ur Barbiturates Screen (NEGATIVE) Ur Phencyclidine Scrn (NEGATIVE) Ur Amphetamine Screen (NEGATIVE) U Methamphetamines Scrn (NEGATIVE) U Benzodiazepines Scrn (NEGATIVE) U Cocaine Metab Screen (NEGATIVE) U Marijuana (THC) Screen (NEGATIVE) Ethyl Alcohol mg/dL 03/23/18 Range/Units 11:53 WBC (4.0-11.0) K/uL RBC (4.50-5.90) M/uL Hgb (13.0-17.0) g/dL Hct (38.0-50.0) % MCV (80.0-98.0) fL MCH (27.0-32.0) pg MCHC (31.0-37.0) g/dL RDW Std Deviation (28.0-62.0) fl RDW Coeff of Bakari (11.0-15.0) % Plt Count (150-400) K/uL MPV (7.40-12.00) fL Neut % (Auto) (48.0-80.0) % Lymph % (Auto) (16.0-40.0) % [place] % (Auto) (0.0-15.0) % Eos % (Auto) (0.0-7.0) % Baso % (Auto) (0.0-1.5) % Neut # (Auto) (1.4-5.7) K/uL Lymph # (Auto) (0.6-2.4) K/uL [place] # (Auto) (0.0-0.8) K/uL Eos # (Auto) (0.0-0.7) K/uL Baso # (Auto) (0.0-0.1) K/uL Nucleated RBC % /100WBC Nucleated RBCs # K/uL INR APTT 40.8 H (18.6-31.3) SEC Sodium (136-148) mmol/L Potassium (3.5-5.1) mmol/L Chloride (98-107) mmol/L Carbon Dioxide (21.0-32.0) mmol/L BUN (7.0-18.0) mg/dL Creatinine (0.8-1.3) mg/dL Est Cr Clr Drug Dosing mL/min Estimated GFR (MDRD) ml/min Glucose (74-106) mg/dL Hemoglobin A1c (4.5-6.2) % Calcium (8.5-10.1) mg/dL Magnesium (1.8-2.4) mg/dL Total Bilirubin (0.2-1.0) mg/dL AST (15-37) IU/L ALT (14-63) IU/L Alkaline Phosphatase (46-116) U/L Troponin I (0.000-0.056) ng/mL Total Protein (6.4-8.2) g/dL Albumin (3.4-5.0) g/dL Globulin (2.0-3.5) g/dL Albumin/Globulin Ratio (1.3-2.8) Triglycerides (0-200) mg/dL Cholesterol (50-200) mg/dL LDL Cholesterol, Calc (60-180) mg/dL VLDL Cholesterol (5-55) mg/dL HDL Cholesterol (40-60) mg/dL Cholesterol/HDL Ratio (3.3-6.0) TSH 3rd Generation (0.36-3.74) uIU/mL Urine Color Urine Appearance Urine pH (5.0-8.0) Ur Specific [place] (1.001-1.035) Urine Protein (NEGATIVE) mg/dL Urine Glucose (UA) (NEGATIVE) mg/dL Urine Ketones (NEGATIVE) mg/dL Urine Occult Blood (NEGATIVE) Urine Nitrite (NEGATIVE) Urine Bilirubin (NEGATIVE) Urine Urobilinogen (<2.0) EU/dL Ur Leukocyte Esterase (NEGATIVE) Urine Opiates Screen (NEGATIVE) Ur Oxycodone Screen (NEGATIVE) Urine Methadone Screen (NEGATIVE) Ur Barbiturates Screen (NEGATIVE) Ur Phencyclidine Scrn (NEGATIVE) Ur Amphetamine Screen (NEGATIVE) U Methamphetamines Scrn (NEGATIVE) U Benzodiazepines Scrn (NEGATIVE) U Cocaine Metab Screen (NEGATIVE) U Marijuana (THC) Screen (NEGATIVE) Ethyl Alcohol mg/dL Med Orders - Current: Current Medications Acetaminophen (Tylenol) 650 mg PO Q4H PRN PRN Reason: Pain (Mild 1-3)/fever Albuterol/Ipratropium (Duoneb 3.0-0.5 Mg/3 Ml) 3 ml NEB Q4HRRT PRN PRN Reason: Shortness Of Breath/wheezing Aspirin (Aspirin) 325 mg PO DAILY [facility] Last Admin: 03/23/18 10:15 Dose: 325 mg Clopidogrel Bisulfate (Plavix) 75 mg PO DAILY [facility] Last Admin: 03/23/18 10:15 Dose: 75 mg Clotrimazole (Lotrimin Af 1% Crm) 1 gm TOP BID [facility] Last Admin: 03/23/18 10:33 Dose: Not Given Famotidine (Pepcid) 20 mg IVPUSH DAILY [facility] Last Admin: 03/23/18 10:15 Dose: 20 mg Diltiazem HCl 125 mg/ Sodium (Chloride) 125 mls @ 5 mls/hr IV NOW ONE; Protocol Stop: 03/23/18 16:50 Last Infusion: 03/23/18 02:30 Dose: 0 mg/hr, 0 mls/hr Heparin Sodium/Sodium Chloride (Heparin-1/2ns 25,000 Units/500) 25,000 unit in 500 mls @ 17.494 mls/hr IV TITRATE [facility]; Protocol Last Admin: 03/22/18 23:16 Dose: 12 units/kg/hr, 17.494 mls/hr Metoprolol Tartrate (Lopressor) 50 mg PO TID [facility] Morphine Sulfate (Morphine) 2 mg IVPUSH Q2H PRN PRN Reason: Pain (severe 7-10) Stop: 03/23/18 17:56 Sodium Chloride (Saline Flush) 10 ml FLUSH ASDIRECTED PRN PRN Reason: Keep Vein Open Sodium Chloride (Saline Flush) 2.5 ml FLUSH ASDIRECTED PRN PRN Reason: Keep Vein Open Sodium Chloride (Saline Flush) 10 ml FLUSH ASDIRECTED PRN PRN Reason: Keep Vein Open Sodium Chloride (Saline Flush) 2.5 ml FLUSH ASDIRECTED PRN PRN Reason: Keep Vein Open Warfarin Sodium (Coumadin) 5 mg PO DAILY@1400 JAYME Discontinued Medications Aspirin (Aspirin) 325 mg PO ONETIME ONE Stop: 03/22/18 22:11 Last Admin: 03/22/18 22:57 Dose: 325 mg Atorvastatin Calcium (Lipitor) 80 mg PO ONETIME ONE Stop: 03/22/18 22:34 Last Admin: 03/22/18 22:57 Dose: 80 mg Atorvastatin Calcium (Lipitor) 80 mg PO ONETIME ONE Stop: 03/23/18 08:26 Last Admin: 03/23/18 10:15 Dose: 80 mg Clopidogrel Bisulfate (Plavix) 600 mg PO ONETIME ONE Stop: 03/22/18 22:34 Last Admin: 03/22/18 22:58 Dose: 600 mg Diltiazem HCl (Diltiazem) 20 mg IVPUSH ONETIME ONE Stop: 03/22/18 14:32 Last Admin: 03/22/18 14:42 Dose: 20 mg Enoxaparin Sodium (Lovenox) 60 mg SUBCUT ONETIME ONE Stop: 03/22/18 14:33 Last Admin: 03/22/18 14:58 Dose: 60 mg Furosemide (Lasix) 40 mg IVPUSH NOW ONE Stop: 03/23/18 12:29 Heparin Sodium (Porcine) (Heparin Sodium) 4,000 units IVPUSH ONETIME ONE Stop: 03/22/18 22:55 Last Admin: 03/22/18 23:15 Dose: 4,000 units Sodium Chloride (Normal Saline) 1,000 mls @ 999 mls/hr IV STAT ONE Stop: 03/22/18 15:31 Last Admin: 03/22/18 14:43 Dose: 999 mls/hr Multivitamins/Minerals 10 ml/Thiamine HCl 100 mg/ Folic Acid 1 mg/ Sodium Chloride 1,011.2 mls @ 125 mls/hr IV ONETIME ONE Stop: 03/23/18 00:31 Last Admin: 03/22/18 16:53 Dose: 125 mls/hr Lorazepam (Ativan) 1 mg IVPUSH ONETIME ONE Stop: 03/22/18 15:52 Last Admin: 03/22/18 16:13 Dose: 1 mg Metoprolol Tartrate (Lopressor) 5 mg IVPUSH ONETIME ONE Stop: 03/22/18 20:53 Last Admin: 03/22/18 21:11 Dose: 5 mg Metoprolol Tartrate (Lopressor) 5 mg IVPUSH ONETIME ONE Stop: 03/23/18 04:01 Last Admin: 03/23/18 04:35 Dose: 5 mg Metoprolol Tartrate (Lopressor) 50 mg PO Q12H JAYME Last Admin: 03/23/18 10:16 Dose: 50 mg - Exam General: Alert, Oriented HEENT: Pupils Equal Neck: Supple, Trachea Midline, JVD Lungs: Clear to Auscultation, Decreased Breath Sounds Cardiovascular: Irregular Rhythm, Tachycardia GI/Abdominal Exam: Normal Bowel Sounds, Soft, Non-Tender, No Organomegaly, No Distention Back Exam: Normal Inspection Extremities: Normal Inspection Skin: Other ( patchy skin discoloration) - Problem List & Annotations (1) Chest tightness or pressure SNOMED Code(s): 64677438 Code(s): R07.89 - OTHER CHEST PAIN Status: Acute Current Visit: Yes (2) Atrial fibrillation with RVR SNOMED Code(s): 381577498548333 Code(s): I48.91 - UNSPECIFIED ATRIAL FIBRILLATION Status: Acute Current Visit: Yes (3) Alcohol abuse SNOMED Code(s): 77872587 Code(s): F10.10 - ALCOHOL ABUSE, UNCOMPLICATED Status: Acute Current Visit: Yes (4) Atrial flutter SNOMED Code(s): 9670861 Code(s): I48.92 - UNSPECIFIED ATRIAL FLUTTER Status: Acute Current Visit : Yes (5) Tobacco abuse SNOMED Code(s): 349812832 Code(s): Z72.0 - TOBACCO USE Status: Acute Current Visit: Yes (6) Pityriasis circinata et maculata SNOMED Code(s): 18747451 Code(s): L42 - PITYRIASIS ROSEA Status: Acute Current Visit: Yes - Problem List Review Problem List Initiated/Reviewed/Updated: Yes - My Orders Last 24 Hours: My Active Orders 03/22/18 17:54 Vital Signs [RC] Q1H Acetaminophen [Tylenol] 650 mg PO Q4H PRN Albuterol/Ipratropium [DuoNeb 3.0-0.5 MG/3 ML] 3 ml NEB Q4HRRT PRN Morphine 2 mg IVPUSH Q2H PRN Sodium Chloride 0.9% [Saline Flush] 10 ml FLUSH ASDIRECTED PRN Sodium Chloride 0.9% [Saline Flush] 2.5 ml FLUSH ASDIRECTED PRN Peripheral IV Insertion Adult [OM.PC] Routine Resuscitation Status Routine 03/22/18 17:55 Sequential Compression Device [OM.PC] Per Unit Routine 03/22/18 17:57 RT Aerosol Therapy [RC] ASDIRECTED 03/22/18 20:10 DRUG SCREEN, URINE [URCHEM] Routine UA W/O MICROSCOPIC [URIN] Routine 03/22/18 22:32 Consult to Physician [CONS] Stat 03/22/18 22:34 Notify Provider Consults [RC] ASDIRECTED 03/22/18 22:45 Famotidine [Pepcid] 20 mg IVPUSH DAILY Heparin Sod,Pork In 0.45% Nacl [Heparin-1/2Ns 25,000 Units/500] 25,000 unit in 500 ml IV TITRATE 03/22/18 Dinner 2 Gram Sodium Diet [DIET] 03/23/18 Echo Comp wo Cont [US] Stat 03/23/18 09:00 Aspirin 325 mg PO DAILY Clopidogrel [Plavix] 75 mg PO DAILY 03/23/18 09:30 Clotrimazole [Lotrimin AF 1% Crm] 1 gm TOP BID 03/23/18 10:12 Consult to Physician [CONS] Urgent 03/23/18 10:13 Notify Provider Consults [RC] ASDIRECTED 03/23/18 12:46 Patient Status [ADT] Routine 03/23/18 17:30 aPTT [PTT,PARTIAL THROMBOPLSTIN TIME] [COAG] Q6H 03/23/18 23:30 aPTT [PTT,PARTIAL THROMBOPLSTIN TIME] [COAG] Q6H 03/24/18 05:11 CBC W/O DIFF,HEMOGRAM [HEME] AM COMPREHENSIVE METABOLIC PN,CMP [CHEM] AM 03/24/18 05:30 aPTT [PTT,PARTIAL THROMBOPLSTIN TIME] [COAG] Q6H 03/25/18 05:11 CBC W/O DIFF,HEMOGRAM [HEME] AM COMPREHENSIVE METABOLIC PN,CMP [CHEM] AM 03/26/18 05:11 CBC W/O DIFF,HEMOGRAM [HEME] AM COMPREHENSIVE METABOLIC PN,CMP [CHEM] AM 03/27/18 05:11 COMPREHENSIVE METABOLIC PN,CMP [CHEM] AM - Plan Plan:: Assessment and plan A. fib with RVR Alcohol abuse Chest tightness Tobacco abuse Elevated troponins Demand ischemia hypertrygliceridemia CHF Plan Will change patient to inpatient Cardizem drip was d/c Started by cardiology on Metoprolol 50 mg po q 8 h , HR still not controlled. May give metoprolol iv 5 mg if HR more than 100 Troponins trending down Patient was consulted for more than 5 minutes to stop smoking and to stop drinking alcohol started on heparin drip last night , NSTEMI - continue heparin drip for a total of 48 h Atorvastaine 80 mg given last night and today plavix loading dose 600 mg po given last night. Will continue patient with plavix 75 mg po daily Aspirin 325 mg given last night . Patient was continued with Aspirin 325 mg po daily. For Hypertrygliceridemia- patient is on atorvastatin
[2018-03-23] MEDS ORDERED: Heparin Sodium 5,000 Units/ML Vial IVPUSH ONE ×3 (12:55→19:27)
[2018-03-23] MEDS: Metoprolol Tartrate 50 MG Tab PO SCH ×2 (13:14→21:02)
[2018-03-23] MEDS: Warfarin 5 MG Tab PO SCH (13:14)
--- NOTE | 2018-03-23 13:41 | CONS ---
DATE OF CONSULTATION: DATE OF : 1970 PRIMARY CARE PHYSICIAN: None PCP REASON FOR CONSULTATION: Atrial fibrillation with RVR and troponin elevation. HISTORY OF PRESENT ILLNESS: This is a 47-year-old male who has a history of atrial fibrillation in the past. Did not see a doctor for a long period of time. He presented to hospital with one day of heart racing, shortness of breath, started yesterday. He stated that he did not feel much of the chest pain. It was very mild, but the symptom was more of palpitations and shortness of breath. He also feels like dizzy as well as wetting, that was the reason he came into the hospital. When he was seen in the hospital, he was found to have atrial fibrillation with RVR, heart rate is 110 to 120, and then he was admitted to the hospital to the ICU. The first troponin was negative; however, the second, the third, and the fourth, it was elevated and that was the reason the patient was started aspirin as well as a diltiazem IV drip and heparin IV drip also started, metoprolol 50 mg twice a day also started. Currently, his heart rate is ranging between 90 and 110, and he stated that his heart racing seemed to be better; however, when he gets up and about, he still feels like heart racing. He told me that like 8 to 9 years ago, he was admitted to the hospital with similar symptom of the heart racing and shortness of breath. He was found to have an atrial fibrillation at that time. He was told that he needs to take a blood thinner; however, he did not go by to see a doctor. He had a stress test done. He was told everything is looks good. There was no blockage. We do not have any available records at this time, and he is a heavy smoker. He is heavily drinking as well. He is on a CIWA protocol now. He denied leg swelling, and he feels good before he came into the hospital. PAST MEDICAL HISTORY: Including atrial fibrillation. ALLERGIES: He has no known drug allergies. MEDICATIONS: Current medications include: 1. Metoprolol 50 twice a day. 2. Plavix 75 mg once a day. 3. Aspirin. 4. Heparin IV drip. SOCIAL HISTORY: Heavy smoker and he also drinks everyday, at least 4 shots of whiskey. No drug use. FAMILY HISTORY: Denies family history of a heart attack or CAD in the family. REVIEW OF SYSTEMS: A 12-point review of systems is negative except indicated in HPI. PHYSICAL EXAMINATION: VITAL SIGNS: The initial heart rate was around like 100 to 110; the current heart rate is about the same thing 100 to 110. Blood pressure initially was 111/79, current blood pressure is around 109 to 113 over 67 to 87. O2 saturation is 92% on 2 L. Respirations 18 to 20. Temperature is 36.5. HEENT: Mildly pale. No jaundice. NECK: JVD positive. HEART: Totally irregular, tachycardia. No murmur. LUNGS: Crackles bilaterally. No wheezing. ABDOMEN: Soft. Nontender. Bowel sounds present. No hepatosplenomegaly. EXTREMITIES: Legs with no edema. LABORATORY INVESTIGATION: CBC showed WBC 9, hematocrit of 39, hemoglobin 13, platelets 146. Total cholesterol 157, LDL 77, HDL 28. Sodium 138, potassium 3.9, chloride 107, bicarb 26, BUN 7, creatinine 1. A1c is 6. Troponin: The first one is less than 0.05, the second one is 0.27, the third one is 0.31, the fourth one is 0.87. Urine drug screening is negative. Alcohol level is less than 3. EKG showed the atrial fibrillation, RVR with the LVH and the ST abnormality diffusely. Echocardiogram: Ejection fraction is more than 65, hyperdynamic and severe LVH and suspicious for the hypertrophic cardiomyopathy. I did not appreciate any wall motion abnormalities. However, the three chamber view and four chamber, it was foreshortened, and moderate pericardial effusion. There is no sign of tamponade. ASSESSMENT AND PLAN: This is a 47-year-old male who has a history of persistent atrial fibrillation, came in with decompensated heart failure, preserved ejection fraction, severe left ventricular hypertrophy, suspicion for hypertrophic cardiomyopathy. 1. Atrial fibrillation with rapid ventricular response. I will increase the metoprolol up to 50 mg, 3 times a day, and start the Coumadin 5 and check INR daily. 2. Troponin elevation. It could be demand ischemia for the atrial fibrillation with rapid ventricular response. He did not have much of the chest pain. It could be also related to heart failure as well. We will keep trending cardiac enzymes, and he will need a stress test as an outpatient. I will continue the heparin for acute coronary syndrome protocol for 2 days and then switch it to the atrial fibrillation protocol bridging with Coumadin. Continue aspirin 81 mg once a day as well as Plavix 75 mg once a day. He will need a stress test as an outpatient, and I will give him the Lasix 40 mg IV now, and he should be on strict I's and O's, low-sodium diet. NANDO BARTON /[id number]
[2018-03-23] MEDS ORDERED: Magnesium Sulfate/Water 2 GM in Premix Bag 1 BAG IV ONE (21:43)
[2018-03-23] MEDS ORDERED: Metoprolol Tartrate 5 MG in Sodium Chloride 0.9% 50 ML IV ONE (21:43)
[2018-03-23] MEDS ORDERED: Metoprolol Tartrate 25 MG Tab PO ONE (21:52)
[2018-03-23] MEDS ORDERED: Metoprolol Tartrate 5 MG/5 ML SDV IVPUSH PRN (22:08)
[2018-03-24] MEDS: Heparin Sod,Pork In 0.45% Nacl 25,000 UNIT/500 ML IV.SOLN IV SCH ×2 (00:59→21:20)
[2018-03-24] MEDS: Metoprolol Tartrate 50 MG Tab PO SCH ×3 (05:27→21:24)
[2018-03-24 05:48] LABS: CHLORIDE,CL 104 mmol/L (98-107); SODIUM,NA 139 mmol/L (136-148)
[2018-03-24] MEDS: Famotidine 20 MG/2 ML SDV IVPUSH SCH (08:12)
[2018-03-24] MEDS: Clotrimazole 1% Crm 30 GM Tube TOP SCH ×2 (08:12→21:28)
[2018-03-24] MEDS: Aspirin 325 MG Tab PO SCH (08:12)
[2018-03-24] MEDS: Clopidogrel 75 MG Tab PO SCH (08:12)
[2018-03-24] MEDS: Thiamine 100 MG Tab PO SCH (11:02)
[2018-03-24] MEDS: Folic Acid 1 MG Tab PO SCH (11:02)
[2018-03-24] MEDS ORDERED: Heparin Sodium 5,000 Units/ML Vial IVPUSH ONE (12:00)
[2018-03-24] MEDS ORDERED: Furosemide 40 MG/4 ML VIAL IVPUSH ONE ×2 (12:52→18:55)
[2018-03-24] MEDS: Warfarin 5 MG Tab PO SCH (13:14)
[2018-03-24] MEDS ORDERED: Potassium Chloride 20 MEQ Tab.ER PO ONE (19:23)
--- NOTE | 2018-03-24 20:50 | PCM.PN ---
- General Info Date of Service: 03/24/18 Admission Dx/Problem (Free Text): Admission Diagnosis/Problem 47M with heart racing palpitation and SOB found to have afib RVR, with trop elevation, decompensated severe diastolic CHF , with severe LVH possibly infiltrative cardiac disease. Subjective Update: He had good urine output today his breathing almost back tonormal, he was converted to SR. Functional Status: Reports: Pain Controlled - Review of Systems General: Reports: No Symptoms Pulmonary: Reports: Shortness of Breath Cardiovascular: Reports: No Symptoms Gastrointestinal: Reports: No Symptoms Genitourinary: Reports: No Symptoms Musculoskeletal: Reports: No Symptoms Skin: Reports: No Symptoms Psychiatric: Reports: No Symptoms - Patient Data Vitals - Most Recent: Last Vital Signs Temp 36.4 C 03/24/18 20:00 Pulse 80 03/24/18 20:00 Resp 18 03/24/18 20:00 BP 118/76 03/24/18 20:00 Pulse Ox 95 03/24/18 20:00 Weight - Most Recent: 74.117 kg I&O - Last 24 Hours: Intake & Output 03/24/18 03/24/18 03/24/18 06:59 14:59 22:59 Intake Total 50 987 879 Output Total 1325 1400 Balance 16 -671 -477 Lab Results Last 24 Hours: Laboratory Results - last 24 hr 03/23/18 03/24/18 03/24/18 Range/Units 23:30 05:10 05:10 WBC 9.67 (4.0-11.0) K/uL RBC 4.66 (4.50-5.90) M/uL Hgb 14.4 (13.0-17.0) g/dL Hct 42.8 (38.0-50.0) % MCV 91.8 (80.0-98.0) fL MCH 30.9 (27.0-32.0) pg MCHC 33.6 (31.0-37.0) g/dL RDW Std Deviation 46.3 (28.0-62.0) fl RDW Coeff of Bakari 14 (11.0-15.0) % Plt Count 167 (150-400) K/uL MPV 10.40 (7.40-12.00) fL Nucleated RBC % 0.0 /100WBC Nucleated RBCs # 0 K/uL INR APTT 67.4 H (18.6-31.3) SEC Sodium 139 (136-148) mmol/L Potassium 3.7 (3.5-5.1) mmol/L Chloride 104 (98-107) mmol/L Carbon Dioxide 28.1 (21.0-32.0) mmol/L BUN 14 (7.0-18.0) mg/dL Creatinine 1.1 (0.8-1.3) mg/dL Est Cr Clr Drug Dosing 74.92 mL/min Estimated GFR (MDRD) > 60.0 ml/min Glucose 104 (74-106) mg/dL Calcium 9.0 (8.5-10.1) mg/dL Phosphorus (2.6-4.7) mg/dL Magnesium (1.8-2.4) mg/dL Total Bilirubin 0.4 (0.2-1.0) mg/dL AST 21 (15-37) IU/L ALT 34 (14-63) IU/L Alkaline Phosphatase 61 (46-116) U/L Total Protein 7.3 (6.4-8.2) g/dL Albumin 3.4 (3.4-5.0) g/dL Globulin 3.9 H (2.0-3.5) g/dL Albumin/Globulin Ratio 0.9 L (1.3-2.8) 03/24/18 03/24/18 03/24/18 Range/Units 05:10 05:10 11:03 WBC (4.0-11.0) K/uL RBC (4.50-5.90) M/uL Hgb (13.0-17.0) g/dL Hct (38.0-50.0) % MCV (80.0-98.0) fL MCH (27.0-32.0) pg MCHC (31.0-37.0) g/dL RDW Std Deviation (28.0-62.0) fl RDW Coeff of Bakari (11.0-15.0) % Plt Count (150-400) K/uL MPV (7.40-12.00) fL Nucleated RBC % /100WBC Nucleated RBCs # K/uL INR 1.05 APTT 50.0 H (18.6-31.3) SEC Sodium (136-148) mmol/L Potassium (3.5-5.1) mmol/L Chloride (98-107) mmol/L Carbon Dioxide (21.0-32.0) mmol/L BUN (7.0-18.0) mg/dL Creatinine (0.8-1.3) mg/dL Est Cr Clr Drug Dosing mL/min Estimated GFR (MDRD) ml/min Glucose (74-106) mg/dL Calcium (8.5-10.1) mg/dL Phosphorus 3.4 (2.6-4.7) mg/dL Magnesium 2.4 (1.8-2.4) mg/dL Total Bilirubin (0.2-1.0) mg/dL AST (15-37) IU/L ALT (14-63) IU/L Alkaline Phosphatase (46-116) U/L Total Protein (6.4-8.2) g/dL Albumin (3.4-5.0) g/dL Globulin (2.0-3.5) g/dL Albumin/Globulin Ratio (1.3-2.8) 03/24/18 03/24/18 Range/Units 11:03 18:01 WBC (4.0-11.0) K/uL RBC (4.50-5.90) M/uL Hgb (13.0-17.0) g/dL Hct (38.0-50.0) % MCV (80.0-98.0) fL MCH (27.0-32.0) pg MCHC (31.0-37.0) g/dL RDW Std Deviation (28.0-62.0) fl RDW Coeff of Bakari (11.0-15.0) % Plt Count (150-400) K/uL MPV (7.40-12.00) fL Nucleated RBC % /100WBC Nucleated RBCs # K/uL INR APTT 48.2 H 58.6 H (18.6-31.3) SEC Sodium (136-148) mmol/L Potassium (3.5-5.1) mmol/L Chloride (98-107) mmol/L Carbon Dioxide (21.0-32.0) mmol/L BUN (7.0-18.0) mg/dL Creatinine (0.8-1.3) mg/dL Est Cr Clr Drug Dosing mL/min Estimated GFR (MDRD) ml/min Glucose (74-106) mg/dL Calcium (8.5-10.1) mg/dL Phosphorus (2.6-4.7) mg/dL Magnesium (1.8-2.4) mg/dL Total Bilirubin (0.2-1.0) mg/dL AST (15-37) IU/L ALT (14-63) IU/L Alkaline Phosphatase (46-116) U/L Total Protein (6.4-8.2) g/dL Albumin (3.4-5.0) g/dL Globulin (2.0-3.5) g/dL Albumin/Globulin Ratio (1.3-2.8) Med Orders - Current: Current Medications Acetaminophen (Tylenol) 650 mg PO Q4H PRN PRN Reason: Pain (Mild 1-3)/fever Albuterol/Ipratropium (Duoneb 3.0-0.5 Mg/3 Ml) 3 ml NEB Q4HRRT PRN PRN Reason: Shortness Of Breath/wheezing Aspirin (Aspirin) 81 mg PO DAILY [facility] Atorvastatin Calcium (Lipitor) 40 mg PO BEDTIME [facility] Clopidogrel Bisulfate (Plavix) 75 mg PO DAILY [facility] Last Admin: 03/24/18 08:12 Dose: 75 mg Clotrimazole (Lotrimin Af 1% Crm) 1 gm TOP BID [facility] Last Admin: 03/24/18 08:12 Dose: 1 applic Famotidine (Pepcid) 20 mg IVPUSH DAILY [facility] Last Admin: 03/24/18 08:12 Dose: 20 mg Folic Acid (Folic Acid) 1 mg PO DAILY [facility] Last Admin: 03/24/18 11:02 Dose: 1 mg Heparin Sodium/Sodium Chloride (Heparin-1/2ns 25,000 Units/500) 25,000 unit in 500 mls @ 17.494 mls/hr IV TITRATE [facility]; Protocol Last Titration: 03/24/18 12:06 Dose: 18 units/kg/hr, 26.241 mls/hr Metoprolol Succinate (Toprol Xl) 100 mg PO DAILY [facility] Metoprolol Tartrate (Lopressor) 50 mg PO TID [facility] Last Admin: 03/24/18 13:14 Dose: 50 mg Metoprolol Tartrate (Lopressor) 5 mg IVPUSH Q4H PRN PRN Reason: hr more [id number] Sodium Chloride (Saline Flush) 10 ml FLUSH ASDIRECTED PRN PRN Reason: Keep Vein Open Sodium Chloride (Saline Flush) 2.5 ml FLUSH ASDIRECTED PRN PRN Reason: Keep Vein Open Sodium Chloride (Saline Flush) 10 ml FLUSH ASDIRECTED PRN PRN Reason: Keep Vein Open Sodium Chloride (Saline Flush) 2.5 ml FLUSH ASDIRECTED PRN PRN Reason: Keep Vein Open Thiamine HCl (Vitamin B-1) 100 mg PO DAILY [facility] Last Admin: 03/24/18 11:02 Dose: 100 mg Warfarin Sodium (Coumadin) 5 mg PO DAILY@1400 [facility] Last Admin: 03/24/18 13:14 Dose: 5 mg Discontinued Medications Aspirin (Aspirin) 325 mg PO ONETIME ONE Stop: 03/22/18 22:11 Last Admin: 03/22/18 22:57 Dose: 325 mg Aspirin (Aspirin) 325 mg PO DAILY [facility] Last Admin: 03/24/18 08:12 Dose: 325 mg Atorvastatin Calcium (Lipitor) 80 mg PO ONETIME ONE Stop: 03/22/18 22:34 Last Admin: 03/22/18 22:57 Dose: 80 mg Atorvastatin Calcium (Lipitor) 80 mg PO ONETIME ONE Stop: 03/23/18 08:26 Last Admin: 03/23/18 10:15 Dose: 80 mg Clopidogrel Bisulfate (Plavix) 600 mg PO ONETIME ONE Stop: 03/22/18 22:34 Last Admin: 03/22/18 22:58 Dose: 600 mg Diltiazem HCl (Diltiazem) 20 mg IVPUSH ONETIME ONE Stop: 03/22/18 14:32 Last Admin: 03/22/18 14:42 Dose: 20 mg Enoxaparin Sodium (Lovenox) 60 mg SUBCUT ONETIME ONE Stop: 03/22/18 14:33 Last Admin: 03/22/18 14:58 Dose: 60 mg Furosemide (Lasix) 40 mg IVPUSH NOW ONE Stop: 03/23/18 12:29 Last Admin: 03/23/18 13:13 Dose: 40 mg Furosemide (Lasix) 40 mg IVPUSH NOW ONE Stop: 03/23/18 20:01 Last Admin: 03/23/18 19:51 Dose: 40 mg Furosemide (Lasix) 40 mg IVPUSH NOW ONE Stop: 03/23/18 22:12 Last Admin: 03/23/18 22:38 Dose: Not Given Furosemide (Lasix) 40 mg IVPUSH NOW ONE Stop: 03/24/18 12:53 Last Admin: 03/24/18 13:14 Dose: 40 mg Furosemide (Lasix) 40 mg IVPUSH NOW ONE Stop: 03/24/18 18:56 Last Admin: 03/24/18 19:31 Dose: 40 mg Heparin Sodium (Porcine) (Heparin Sodium) 4,000 units IVPUSH ONETIME ONE Stop: 03/22/18 22:55 Last Admin: 03/22/18 23:15 Dose: 4,000 units Heparin Sodium (Porcine) (Heparin Sodium) 1,000 units IVPUSH .BOLUS ONE; Protocol Stop: 03/23/18 13:00 Last Admin: 03/23/18 13:08 Dose: 1,000 units Heparin Sodium (Porcine) (Heparin Sodium) 1,000 units IVPUSH .BOLUS ONE Stop: 03/23/18 19:28 Last Admin: 03/23/18 19:48 Dose: 1,000 units Heparin Sodium (Porcine) (Heparin Sodium) 1,000 units IVPUSH ONETIME ONE Stop: 03/24/18 12:01 Last Admin: 03/24/18 12:06 Dose: 1,000 units Sodium Chloride (Normal Saline) 1,000 mls @ 999 mls/hr IV STAT ONE Stop: 03/22/18 15:31 Last Admin: 03/22/18 14:43 Dose: 999 mls/hr Diltiazem HCl 125 mg/ Sodium (Chloride) 125 mls @ 5 mls/hr IV NOW ONE; Protocol Stop: 03/23/18 16:50 Last Infusion: 03/23/18 02:30 Dose: 0 mg/hr, 0 mls/hr Multivitamins/Minerals 10 ml/Thiamine HCl 100 mg/ Folic Acid 1 mg/ Sodium Chloride 1,011.2 mls @ 125 mls/hr IV ONETIME ONE Stop: 03/23/18 00:31 Last Admin: 03/22/18 16:53 Dose: 125 mls/hr Magnesium Sulfate 2 gm/ Premix 50 mls @ 50 mls/hr IV ONETIME ONE Stop: 03/23/18 22:42 Last Admin: 03/23/18 22:25 Dose: 50 mls/hr Metoprolol Tartrate 5 mg/ (Sodium Chloride) 55 mls @ 100 mls/hr IV ONETIME ONE Stop: 03/23/18 22:15 Last Admin: 03/23/18 22:02 Dose: Not Given Lorazepam (Ativan) 1 mg IVPUSH ONETIME ONE Stop: 03/22/18 15:52 Last Admin: 03/22/18 16:13 Dose: 1 mg Metoprolol Tartrate (Lopressor) 5 mg IVPUSH ONETIME ONE Stop: 03/22/18 20:53 Last Admin: 03/22/18 21:11 Dose: 5 mg Metoprolol Tartrate (Lopressor) 5 mg IVPUSH ONETIME ONE Stop: 03/23/18 04:01 Last Admin: 03/23/18 04:35 Dose: 5 mg Metoprolol Tartrate (Lopressor) 50 mg PO Q12H JAYME Last Admin: 03/23/18 10:16 Dose: 50 mg Metoprolol Tartrate (Lopressor) 25 mg PO ONETIME ONE Stop: 03/23/18 21:53 Last Admin: 03/23/18 22:10 Dose: 25 mg Metoprolol Tartrate (Lopressor) 5 mg IVPUSH ONETIME ONE Stop: 03/23/18 22:01 Last Admin: 03/23/18 22:11 Dose: 5 mg Morphine Sulfate (Morphine) 2 mg IVPUSH Q2H PRN PRN Reason: Pain (severe 7-10) Stop: 03/23/18 17:56 Potassium Chloride (Klor-Con M20) 40 meq PO ONETIME ONE Stop: 03/24/18 19:24 Last Admin: 03/24/18 19:31 Dose: 40 meq - Exam General: Alert, Oriented HEENT: Pupils Equal Neck: No JVD Lungs: Rales Cardiovascular: Regular Rate, Regular Rhythm GI/Abdominal Exam: Normal Bowel Sounds Extremities: No Pedal Edema EKG INTERPRETATION Rhythm: NSR - Problem List Review Problem List Initiated/Reviewed/Updated: Yes - My Orders Last 24 Hours: My Active Orders 03/24/18 21:00 atorvaSTATin [Lipitor] 40 mg PO BEDTIME 03/25/18 05:00 INR,PT,PROTHROMBIN TIME [COAG] DAILY 03/25/18 09:00 Aspirin 81 mg PO DAILY Metoprolol Succinate [Toprol XL] 100 mg PO DAILY 03/26/18 05:00 INR,PT,PROTHROMBIN TIME [COAG] DAILY 03/27/18 05:00 INR,PT,PROTHROMBIN TIME [COAG] DAILY 03/28/18 05:00 INR,PT,PROTHROMBIN TIME [COAG] DAILY - Plan Plan:: Assessment and plan 47M hx Afib decompensated diastolic HF with severe LVH suspicious for infiltrative disease such as amyloid afib RVR, trop elevation now converted. 1. decompensated dCHF/afib RVR, I will change the metoprolol to toprol XL 100 tomorrow, he is on coumadin now, he was on heparin for ACS protocol for more than 48 hours. ECG while in SR with repolarization abnormalities. Echo showed pericardial effusion. There was no sign of tamponade. Trop[ trending down now. - continue coumadin/heprin or lovenox for afib - start toprol 100 XL tomorrow - will give lasix 40 mg IV tonight, possibly lasix 40 PO daily tomorrow - continue ASA 81, plavix 75 daily, lipitor - will work up for amyloid abdominal fat pad biopsy per hospitalist - he will need stress test as outpatient
[2018-03-24] MEDS: atorvaSTATin 40 MG Tab PO SCH (21:24)
--- NOTE | 2018-03-24 22:06 | PCM.PN ---
- General Info Date of Service: 03/24/18 - Review of Systems General: Reports: No Symptoms HEENT: Reports: No Symptoms Pulmonary: Reports: Shortness of Breath Cardiovascular: Reports: Dyspnea on Exertion Gastrointestinal: Reports: No Symptoms Genitourinary: Reports: No Symptoms Musculoskeletal: Reports: No Symptoms Skin: Reports: No Symptoms Neurological: Reports: No Symptoms Psychiatric: Reports: No Symptoms - Patient Data Vitals - Most Recent: Last Vital Signs Temp 97.5 F 03/24/18 20:00 Pulse 74 03/24/18 21:24 Resp 18 03/24/18 20:00 BP 115/80 03/24/18 21:24 Pulse Ox 95 03/24/18 20:00 Weight - Most Recent: 163 lb 6.4 oz I&O - Last 24 Hours: Intake & Output 03/24/18 03/24/18 03/24/18 06:59 14:59 22:59 Intake Total 50 987 879 Output Total 1325 1400 Balance 64 -499 -295 Lab Results Last 24 Hours: Laboratory Results - last 24 hr 03/23/18 03/24/18 03/24/18 Range/Units 23:30 05:10 05:10 WBC 9.67 (4.0-11.0) K/uL RBC 4.66 (4.50-5.90) M/uL Hgb 14.4 (13.0-17.0) g/dL Hct 42.8 (38.0-50.0) % MCV 91.8 (80.0-98.0) fL MCH 30.9 (27.0-32.0) pg MCHC 33.6 (31.0-37.0) g/dL RDW Std Deviation 46.3 (28.0-62.0) fl RDW Coeff of Bakari 14 (11.0-15.0) % Plt Count 167 (150-400) K/uL MPV 10.40 (7.40-12.00) fL Nucleated RBC % 0.0 /100WBC Nucleated RBCs # 0 K/uL INR APTT 67.4 H (18.6-31.3) SEC Sodium 139 (136-148) mmol/L Potassium 3.7 (3.5-5.1) mmol/L Chloride 104 (98-107) mmol/L Carbon Dioxide 28.1 (21.0-32.0) mmol/L BUN 14 (7.0-18.0) mg/dL Creatinine 1.1 (0.8-1.3) mg/dL Est Cr Clr Drug Dosing 74.92 mL/min Estimated GFR (MDRD) > 60.0 ml/min Glucose 104 (74-106) mg/dL Calcium 9.0 (8.5-10.1) mg/dL Phosphorus (2.6-4.7) mg/dL Magnesium (1.8-2.4) mg/dL Total Bilirubin 0.4 (0.2-1.0) mg/dL AST 21 (15-37) IU/L ALT 34 (14-63) IU/L Alkaline Phosphatase 61 (46-116) U/L Total Protein 7.3 (6.4-8.2) g/dL Albumin 3.4 (3.4-5.0) g/dL Globulin 3.9 H (2.0-3.5) g/dL Albumin/Globulin Ratio 0.9 L (1.3-2.8) 03/24/18 03/24/18 03/24/18 Range/Units 05:10 05:10 11:03 WBC (4.0-11.0) K/uL RBC (4.50-5.90) M/uL Hgb (13.0-17.0) g/dL Hct (38.0-50.0) % MCV (80.0-98.0) fL MCH (27.0-32.0) pg MCHC (31.0-37.0) g/dL RDW Std Deviation (28.0-62.0) fl RDW Coeff of Bakari (11.0-15.0) % Plt Count (150-400) K/uL MPV (7.40-12.00) fL Nucleated RBC % /100WBC Nucleated RBCs # K/uL INR 1.05 APTT 50.0 H (18.6-31.3) SEC Sodium (136-148) mmol/L Potassium (3.5-5.1) mmol/L Chloride (98-107) mmol/L Carbon Dioxide (21.0-32.0) mmol/L BUN (7.0-18.0) mg/dL Creatinine (0.8-1.3) mg/dL Est Cr Clr Drug Dosing mL/min Estimated GFR (MDRD) ml/min Glucose (74-106) mg/dL Calcium (8.5-10.1) mg/dL Phosphorus 3.4 (2.6-4.7) mg/dL Magnesium 2.4 (1.8-2.4) mg/dL Total Bilirubin (0.2-1.0) mg/dL AST (15-37) IU/L ALT (14-63) IU/L Alkaline Phosphatase (46-116) U/L Total Protein (6.4-8.2) g/dL Albumin (3.4-5.0) g/dL Globulin (2.0-3.5) g/dL Albumin/Globulin Ratio (1.3-2.8) 03/24/18 03/24/18 Range/Units 11:03 18:01 WBC (4.0-11.0) K/uL RBC (4.50-5.90) M/uL Hgb (13.0-17.0) g/dL Hct (38.0-50.0) % MCV (80.0-98.0) fL MCH (27.0-32.0) pg MCHC (31.0-37.0) g/dL RDW Std Deviation (28.0-62.0) fl RDW Coeff of Bakari (11.0-15.0) % Plt Count (150-400) K/uL MPV (7.40-12.00) fL Nucleated RBC % /100WBC Nucleated RBCs # K/uL INR APTT 48.2 H 58.6 H (18.6-31.3) SEC Sodium (136-148) mmol/L Potassium (3.5-5.1) mmol/L Chloride (98-107) mmol/L Carbon Dioxide (21.0-32.0) mmol/L BUN (7.0-18.0) mg/dL Creatinine (0.8-1.3) mg/dL Est Cr Clr Drug Dosing mL/min Estimated GFR (MDRD) ml/min Glucose (74-106) mg/dL Calcium (8.5-10.1) mg/dL Phosphorus (2.6-4.7) mg/dL Magnesium (1.8-2.4) mg/dL Total Bilirubin (0.2-1.0) mg/dL AST (15-37) IU/L ALT (14-63) IU/L Alkaline Phosphatase (46-116) U/L Total Protein (6.4-8.2) g/dL Albumin (3.4-5.0) g/dL Globulin (2.0-3.5) g/dL Albumin/Globulin Ratio (1.3-2.8) Med Orders - Current: Current Medications Acetaminophen (Tylenol) 650 mg PO Q4H PRN PRN Reason: Pain (Mild 1-3)/fever Albuterol/Ipratropium (Duoneb 3.0-0.5 Mg/3 Ml) 3 ml NEB Q4HRRT PRN PRN Reason: Shortness Of Breath/wheezing Aspirin (Aspirin) 81 mg PO DAILY [facility] Atorvastatin Calcium (Lipitor) 40 mg PO BEDTIME [facility] Last Admin: 03/24/18 21:24 Dose: 40 mg Clopidogrel Bisulfate (Plavix) 75 mg PO DAILY [facility] Last Admin: 03/24/18 08:12 Dose: 75 mg Clotrimazole (Lotrimin Af 1% Crm) 1 gm TOP BID [facility] Last Admin: 03/24/18 21:28 Dose: 1 applic Famotidine (Pepcid) 20 mg IVPUSH DAILY [facility] Last Admin: 03/24/18 08:12 Dose: 20 mg Folic Acid (Folic Acid) 1 mg PO DAILY [facility] Last Admin: 03/24/18 11:02 Dose: 1 mg Heparin Sodium/Sodium Chloride (Heparin-1/2ns 25,000 Units/500) 25,000 unit in 500 mls @ 17.494 mls/hr IV TITRATE JAYME; Protocol Last Admin: 03/24/18 21:20 Dose: 18 units/kg/hr, 26.241 mls/hr Metoprolol Succinate (Toprol Xl) 100 mg PO DAILY [facility] Metoprolol Tartrate (Lopressor) 5 mg IVPUSH Q4H PRN PRN Reason: hr more [id number] Sodium Chloride (Saline Flush) 10 ml FLUSH ASDIRECTED PRN PRN Reason: Keep Vein Open Sodium Chloride (Saline Flush) 2.5 ml FLUSH ASDIRECTED PRN PRN Reason: Keep Vein Open Sodium Chloride (Saline Flush) 10 ml FLUSH ASDIRECTED PRN PRN Reason: Keep Vein Open Sodium Chloride (Saline Flush) 2.5 ml FLUSH ASDIRECTED PRN PRN Reason: Keep Vein Open Thiamine HCl (Vitamin B-1) 100 mg PO DAILY [facility] Last Admin: 03/24/18 11:02 Dose: 100 mg Warfarin Sodium (Coumadin) 5 mg PO DAILY@1400 [facility] Last Admin: 03/24/18 13:14 Dose: 5 mg Discontinued Medications Aspirin (Aspirin) 325 mg PO ONETIME ONE Stop: 03/22/18 22:11 Last Admin: 03/22/18 22:57 Dose: 325 mg Aspirin (Aspirin) 325 mg PO DAILY [facility] Last Admin: 03/24/18 08:12 Dose: 325 mg Atorvastatin Calcium (Lipitor) 80 mg PO ONETIME ONE Stop: 03/22/18 22:34 Last Admin: 03/22/18 22:57 Dose: 80 mg Atorvastatin Calcium (Lipitor) 80 mg PO ONETIME ONE Stop: 03/23/18 08:26 Last Admin: 03/23/18 10:15 Dose: 80 mg Clopidogrel Bisulfate (Plavix) 600 mg PO ONETIME ONE Stop: 03/22/18 22:34 Last Admin: 03/22/18 22:58 Dose: 600 mg Diltiazem HCl (Diltiazem) 20 mg IVPUSH ONETIME ONE Stop: 03/22/18 14:32 Last Admin: 03/22/18 14:42 Dose: 20 mg Enoxaparin Sodium (Lovenox) 60 mg SUBCUT ONETIME ONE Stop: 03/22/18 14:33 Last Admin: 03/22/18 14:58 Dose: 60 mg Furosemide (Lasix) 40 mg IVPUSH NOW ONE Stop: 03/23/18 12:29 Last Admin: 03/23/18 13:13 Dose: 40 mg Furosemide (Lasix) 40 mg IVPUSH NOW ONE Stop: 03/23/18 20:01 Last Admin: 03/23/18 19:51 Dose: 40 mg Furosemide (Lasix) 40 mg IVPUSH NOW ONE Stop: 03/23/18 22:12 Last Admin: 03/23/18 22:38 Dose: Not Given Furosemide (Lasix) 40 mg IVPUSH NOW ONE Stop: 03/24/18 12:53 Last Admin: 03/24/18 13:14 Dose: 40 mg Furosemide (Lasix) 40 mg IVPUSH NOW ONE Stop: 03/24/18 18:56 Last Admin: 03/24/18 19:31 Dose: 40 mg Heparin Sodium (Porcine) (Heparin Sodium) 4,000 units IVPUSH ONETIME ONE Stop: 03/22/18 22:55 Last Admin: 03/22/18 23:15 Dose: 4,000 units Heparin Sodium (Porcine) (Heparin Sodium) 1,000 units IVPUSH .BOLUS ONE; Protocol Stop: 03/23/18 13:00 Last Admin: 03/23/18 13:08 Dose: 1,000 units Heparin Sodium (Porcine) (Heparin Sodium) 1,000 units IVPUSH .BOLUS ONE Stop: 03/23/18 19:28 Last Admin: 03/23/18 19:48 Dose: 1,000 units Heparin Sodium (Porcine) (Heparin Sodium) 1,000 units IVPUSH ONETIME ONE Stop: 03/24/18 12:01 Last Admin: 03/24/18 12:06 Dose: 1,000 units Sodium Chloride (Normal Saline) 1,000 mls @ 999 mls/hr IV STAT ONE Stop: 03/22/18 15:31 Last Admin: 03/22/18 14:43 Dose: 999 mls/hr Diltiazem HCl 125 mg/ Sodium (Chloride) 125 mls @ 5 mls/hr IV NOW ONE; Protocol Stop: 03/23/18 16:50 Last Infusion: 03/23/18 02:30 Dose: 0 mg/hr, 0 mls/hr Multivitamins/Minerals 10 ml/Thiamine HCl 100 mg/ Folic Acid 1 mg/ Sodium Chloride 1,011.2 mls @ 125 mls/hr IV ONETIME ONE Stop: 03/23/18 00:31 Last Admin: 03/22/18 16:53 Dose: 125 mls/hr Magnesium Sulfate 2 gm/ Premix 50 mls @ 50 mls/hr IV ONETIME ONE Stop: 03/23/18 22:42 Last Admin: 03/23/18 22:25 Dose: 50 mls/hr Metoprolol Tartrate 5 mg/ (Sodium Chloride) 55 mls @ 100 mls/hr IV ONETIME ONE Stop: 03/23/18 22:15 Last Admin: 03/23/18 22:02 Dose: Not Given Lorazepam (Ativan) 1 mg IVPUSH ONETIME ONE Stop: 03/22/18 15:52 Last Admin: 03/22/18 16:13 Dose: 1 mg Metoprolol Tartrate (Lopressor) 5 mg IVPUSH ONETIME ONE Stop: 03/22/18 20:53 Last Admin: 03/22/18 21:11 Dose: 5 mg Metoprolol Tartrate (Lopressor) 5 mg IVPUSH ONETIME ONE Stop: 03/23/18 04:01 Last Admin: 03/23/18 04:35 Dose: 5 mg Metoprolol Tartrate (Lopressor) 50 mg PO Q12H [facility] Last Admin: 03/23/18 10:16 Dose: 50 mg Metoprolol Tartrate (Lopressor) 50 mg PO TID [facility] Last Admin: 03/24/18 21:24 Dose: 50 mg Metoprolol Tartrate (Lopressor) 25 mg PO ONETIME ONE Stop: 03/23/18 21:53 Last Admin: 03/23/18 22:10 Dose: 25 mg Metoprolol Tartrate (Lopressor) 5 mg IVPUSH ONETIME ONE Stop: 03/23/18 22:01 Last Admin: 03/23/18 22:11 Dose: 5 mg Morphine Sulfate (Morphine) 2 mg IVPUSH Q2H PRN PRN Reason: Pain (severe 7-10) Stop: 03/23/18 17:56 Potassium Chloride (Klor-Con M20) 40 meq PO ONETIME ONE Stop: 03/24/18 19:24 Last Admin: 03/24/18 19:31 Dose: 40 meq - Exam General: Alert, Oriented, Cooperative HEENT: Pupils Equal, Pupils Reactive Neck: Supple, Trachea Midline, No JVD, No Thyromegaly Lungs: Clear to Auscultation Cardiovascular: Regular Rate, Regular Rhythm, No Murmurs GI/Abdominal Exam: Normal Bowel Sounds, Soft, Non-Tender, No Organomegaly, No Distention Back Exam: Normal Inspection Extremities: Normal Inspection Skin: Warm, Dry Neurological: No New Focal Deficit Psy/Mental Status: Alert, Normal Affect, Normal Mood - Problem List & Annotations (1) Chest tightness or pressure SNOMED Code(s): 45897300 Code(s): R07.89 - OTHER CHEST PAIN Status: Acute Current Visit: Yes (2) Atrial fibrillation with RVR SNOMED Code(s): 110306712795705 Code(s): I48.91 - UNSPECIFIED ATRIAL FIBRILLATION Status: Acute Current Visit: Yes (3) Alcohol abuse SNOMED Code(s): 28575628 Code(s): F10.10 - ALCOHOL ABUSE, UNCOMPLICATED Status: Acute Current Visit: Yes (4) Atrial flutter SNOMED Code(s): 4841642 Code(s): I48.92 - UNSPECIFIED ATRIAL FLUTTER Status: Acute Current Visit : Yes (5) Tobacco abuse SNOMED Code(s): 295158019 Code(s): Z72.0 - TOBACCO USE Status: Acute Current Visit: Yes (6) Pityriasis circinata et maculata SNOMED Code(s): 96871579 Code(s): L42 - PITYRIASIS ROSEA Status: Acute Current Visit: Yes (7) Hypertrophic cardiomyopathy SNOMED Code(s): 491269109 Code(s): I42.2 - OTHER HYPERTROPHIC CARDIOMYOPATHY Status: Acute Current Visit: Yes (8) Diastolic heart failure secondary to hypertrophic cardiomyopathy SNOMED Code(s): 289339372, 444909973 Code(s): I50.30 - UNSPECIFIED DIASTOLIC (CONGESTIVE) HEART FAILURE; I42.2 - OTHER HYPERTROPHIC CARDIOMYOPATHY Status: Acute Current Visit: Yes Qualifiers: Heart failure chronicity: unspecified Qualified Code(s): I50.30 - Unspecified diastolic (congestive) heart failure; I42.2 - Other hypertrophic cardiomyopathy - Problem List Review Problem List Initiated/Reviewed/Updated: Yes - My Orders Last 24 Hours: My Active Orders 03/23/18 22:08 Metoprolol Tartrate [Lopressor] 5 mg IVPUSH Q4H PRN 03/24/18 12:52 Transfer Patient (Change bed) [ADT] Routine 03/24/18 12:55 Telemetry Monitoring [Cardiac Monitoring] [RC] . DIRECTED 03/25/18 00:00 aPTT [PTT,PARTIAL THROMBOPLSTIN TIME] [COAG] Routine 03/25/18 05:11 CBC W/O DIFF,HEMOGRAM [HEME] AM COMPREHENSIVE METABOLIC PN,CMP [CHEM] AM 03/25/18 06:00 aPTT [PTT,PARTIAL THROMBOPLSTIN TIME] [COAG] Q6H 03/25/18 12:00 aPTT [PTT,PARTIAL THROMBOPLSTIN TIME] [COAG] Q6H 03/26/18 05:11 CBC W/O DIFF,HEMOGRAM [HEME] AM COMPREHENSIVE METABOLIC PN,CMP [CHEM] AM 03/27/18 05:11 COMPREHENSIVE METABOLIC PN,CMP [CHEM] AM - Plan Plan:: Echo shows nl EF severe left ventricular hypertrophy. suspicious of amyloidosis Assessment and plan 47M hx Afib decompensated diastolic HF with severe LVH suspicious for infiltrative disease such as amyloid afib RVR, trop elevation now converted. 1. decompensated dCHF/afib RVR, I will change the metoprolol to toprol XL 100 tomorrow, he is on coumadin now, he was on heparin for ACS protocol for more than 48 hours. ECG while in SR with repolarization abnormalities. Echo showed pericardial effusion. There was no sign of tamponade. Trop[ trending down now. - continue coumadin/heprin or lovenox for afib - start toprol 100 XL tomorrow - will give lasix 40 mg IV tonight, possibly lasix 40 PO daily tomorrow - continue ASA 81, plavix 75 daily, lipitor - will work up for amyloid abdominal fat pad biopsy per hospitalist - he will need stress test as outpatient
[2018-03-25 06:04] LABS: CHLORIDE,CL 101 mmol/L (98-107); SODIUM,NA 137 mmol/L (136-148)
[2018-03-25] MEDS: Metoprolol Succinate 100 MG Tab.ER PO SCH (08:00)
[2018-03-25] MEDS: Famotidine 20 MG/2 ML SDV IVPUSH SCH (08:02)
[2018-03-25] MEDS: Clopidogrel 75 MG Tab PO SCH (08:02)
[2018-03-25] MEDS: Folic Acid 1 MG Tab PO SCH (08:03)
[2018-03-25] MEDS: Thiamine 100 MG Tab PO SCH (08:03)
[2018-03-25] MEDS: Aspirin 81 MG Tab.Chew PO SCH (08:03)
[2018-03-25] MEDS: Clotrimazole 1% Crm 30 GM Tube TOP SCH ×2 (08:04→20:00)
--- NOTE | 2018-03-25 11:40 | ECHO ---
EXAM DATE: 03/23/18 PATIENT'S AGE: 47 The echocardiogram report can be seen in this patient's EMR (Electronic Medical Record) in the Reports section. The report has also been scanned into PACs. VJ
[2018-03-25] MEDS: Warfarin 5 MG Tab PO SCH (14:47)
--- NOTE | 2018-03-25 16:06 | US ---
EXAMINATION: Ultrasound guided soft tissue biopsy of the abdomen HISTORY: Possible amyloid COMPARISON: None TECHNIQUE: The procedure, risks, and benefits were discussed with the patient. Written informed conse nt was obtained. An adequate location is noted along the right aspect of the abdomen. The overlying a lizzette was sterilely prepped and draped. 1% lidocaine was administered for local anesthesia. Using ultra sound guidance 4 14-gauge core biopsies were obtained of the abdominal fat parallel to the abdominal wall. Patient tolerated the procedure well. No immediate complications. IMPRESSION: Successful ultrasound-guided abdominal biopsy.
--- NOTE | 2018-03-25 16:19 | PCM.PN ---
- General Info Date of Service: 03/25/18 Subjective Update: Patient feeling better , had 5 beats of V tach on treasury assistant and his Mag and phosphorus was checked and were nl. He has proteinuria and also mild gammaglobulinemia . Serum and urine protein electrophoresis was sent out.Had biopsy today with IR , Us guided biopsy of abdominal fat pad to evaluate for amyloidosis . - Review of Systems General: Reports: No Symptoms HEENT: Reports: No Symptoms Pulmonary: Reports: No Symptoms Cardiovascular: Reports: No Symptoms Gastrointestinal: Reports: No Symptoms Genitourinary: Reports: No Symptoms Musculoskeletal: Reports: No Symptoms Skin: Reports: No Symptoms Neurological: Reports: No Symptoms Psychiatric: Reports: No Symptoms - Patient Data Vitals - Most Recent: Last Vital Signs Temp 96.8 F 03/25/18 16:00 Pulse 64 03/25/18 08:00 Resp 18 03/25/18 16:00 BP 128/86 03/25/18 16:00 Pulse Ox 98 03/25/18 16:00 Weight - Most Recent: 163 lb 6.4 oz I&O - Last 24 Hours: Intake & Output 03/25/18 03/25/18 03/25/18 06:59 14:59 22:59 Intake Total 1148 848 300 Output Total 1225 200 50 Balance -77 648 250 Lab Results Last 24 Hours: Laboratory Results - last 24 hr 03/24/18 03/25/18 03/25/18 Range/Units 18:01 00:13 05:26 WBC 9.51 (4.0-11.0) K/uL RBC 4.96 (4.50-5.90) M/uL Hgb 15.8 (13.0-17.0) g/dL Hct 45.0 (38.0-50.0) % MCV 90.7 (80.0-98.0) fL MCH 31.9 (27.0-32.0) pg MCHC 35.1 (31.0-37.0) g/dL RDW Std Deviation 44.2 (28.0-62.0) fl RDW Coeff of Bakari 14 (11.0-15.0) % Plt Count 166 (150-400) K/uL MPV 10.60 (7.40-12.00) fL Nucleated RBC % 0.0 /100WBC Nucleated RBCs # 0 K/uL INR APTT 58.6 H 52.8 H (18.6-31.3) SEC Sodium (136-148) mmol/L Potassium (3.5-5.1) mmol/L Chloride (98-107) mmol/L Carbon Dioxide (21.0-32.0) mmol/L BUN (7.0-18.0) mg/dL Creatinine (0.8-1.3) mg/dL Est Cr Clr Drug Dosing mL/min Estimated GFR (MDRD) ml/min Glucose (74-106) mg/dL Calcium (8.5-10.1) mg/dL Phosphorus (2.6-4.7) mg/dL Magnesium (1.8-2.4) mg/dL Total Bilirubin (0.2-1.0) mg/dL AST (15-37) IU/L ALT (14-63) IU/L Alkaline Phosphatase (46-116) U/L Total Protein (6.4-8.2) g/dL Albumin (3.4-5.0) g/dL Globulin (2.0-3.5) g/dL Albumin/Globulin Ratio (1.3-2.8) 03/25/18 03/25/18 03/25/18 Range/Units 05:26 05:26 05:26 WBC (4.0-11.0) K/uL RBC (4.50-5.90) M/uL Hgb (13.0-17.0) g/dL Hct (38.0-50.0) % MCV (80.0-98.0) fL MCH (27.0-32.0) pg MCHC (31.0-37.0) g/dL RDW Std Deviation (28.0-62.0) fl RDW Coeff of Bakari (11.0-15.0) % Plt Count (150-400) K/uL MPV (7.40-12.00) fL Nucleated RBC % /100WBC Nucleated RBCs # K/uL INR 1.15 APTT 61.5 H (18.6-31.3) SEC Sodium 137 (136-148) mmol/L Potassium 4.0 (3.5-5.1) mmol/L Chloride 101 (98-107) mmol/L Carbon Dioxide 24.7 (21.0-32.0) mmol/L BUN 20 H (7.0-18.0) mg/dL Creatinine 1.0 (0.8-1.3) mg/dL Est Cr Clr Drug Dosing 82.41 mL/min Estimated GFR (MDRD) > 60.0 ml/min Glucose 97 (74-106) mg/dL Calcium 9.4 (8.5-10.1) mg/dL Phosphorus (2.6-4.7) mg/dL Magnesium (1.8-2.4) mg/dL Total Bilirubin 0.3 (0.2-1.0) mg/dL AST 38 H (15-37) IU/L ALT 55 (14-63) IU/L Alkaline Phosphatase 62 (46-116) U/L Total Protein 8.1 (6.4-8.2) g/dL Albumin 3.7 (3.4-5.0) g/dL Globulin 4.4 H (2.0-3.5) g/dL Albumin/Globulin Ratio 0.8 L (1.3-2.8) 03/25/18 03/25/18 Range/Units 05:26 12:37 WBC (4.0-11.0) K/uL RBC (4.50-5.90) M/uL Hgb (13.0-17.0) g/dL Hct (38.0-50.0) % MCV (80.0-98.0) fL MCH (27.0-32.0) pg MCHC (31.0-37.0) g/dL RDW Std Deviation (28.0-62.0) fl RDW Coeff of Bakari (11.0-15.0) % Plt Count (150-400) K/uL MPV (7.40-12.00) fL Nucleated RBC % /100WBC Nucleated RBCs # K/uL INR APTT 50.4 H (18.6-31.3) SEC Sodium (136-148) mmol/L Potassium (3.5-5.1) mmol/L Chloride (98-107) mmol/L Carbon Dioxide (21.0-32.0) mmol/L BUN (7.0-18.0) mg/dL Creatinine (0.8-1.3) mg/dL Est Cr Clr Drug Dosing mL/min Estimated GFR (MDRD) ml/min Glucose (74-106) mg/dL Calcium (8.5-10.1) mg/dL Phosphorus 4.7 (2.6-4.7) mg/dL Magnesium 2.2 (1.8-2.4) mg/dL Total Bilirubin (0.2-1.0) mg/dL AST (15-37) IU/L ALT (14-63) IU/L Alkaline Phosphatase (46-116) U/L Total Protein (6.4-8.2) g/dL Albumin (3.4-5.0) g/dL Globulin (2.0-3.5) g/dL Albumin/Globulin Ratio (1.3-2.8) Med Orders - Current: Current Medications Acetaminophen (Tylenol) 650 mg PO Q4H PRN PRN Reason: Pain (Mild 1-3)/fever Albuterol/Ipratropium (Duoneb 3.0-0.5 Mg/3 Ml) 3 ml NEB Q4HRRT PRN PRN Reason: Shortness Of Breath/wheezing Aspirin (Aspirin) 81 mg PO DAILY [facility] Last Admin: 03/25/18 08:03 Dose: 81 mg Atorvastatin Calcium (Lipitor) 40 mg PO BEDTIME [facility] Last Admin: 03/24/18 21:24 Dose: 40 mg Clopidogrel Bisulfate (Plavix) 75 mg PO DAILY [facility] Last Admin: 03/25/18 08:02 Dose: 75 mg Clotrimazole (Lotrimin Af 1% Crm) 1 gm TOP BID [facility] Last Admin: 03/25/18 08:04 Dose: 1 applic Famotidine (Pepcid) 20 mg IVPUSH DAILY [facility] Last Admin: 03/25/18 08:02 Dose: 20 mg Folic Acid (Folic Acid) 1 mg PO DAILY [facility] Last Admin: 03/25/18 08:03 Dose: 1 mg Heparin Sodium/Sodium Chloride (Heparin-1/2ns 25,000 Units/500) 25,000 unit in 500 mls @ 17.494 mls/hr IV TITRATE [facility]; Protocol Last Admin: 03/24/18 21:20 Dose: 18 units/kg/hr, 26.241 mls/hr Metoprolol Succinate (Toprol Xl) 100 mg PO DAILY [facility] Last Admin: 03/25/18 08:00 Dose: 100 mg Metoprolol Tartrate (Lopressor) 5 mg IVPUSH Q4H PRN PRN Reason: hr more [id number] Sodium Chloride (Saline Flush) 10 ml FLUSH ASDIRECTED PRN PRN Reason: Keep Vein Open Sodium Chloride (Saline Flush) 2.5 ml FLUSH ASDIRECTED PRN PRN Reason: Keep Vein Open Sodium Chloride (Saline Flush) 10 ml FLUSH ASDIRECTED PRN PRN Reason: Keep Vein Open Sodium Chloride (Saline Flush) 2.5 ml FLUSH ASDIRECTED PRN PRN Reason: Keep Vein Open Thiamine HCl (Vitamin B-1) 100 mg PO DAILY [facility] Last Admin: 03/25/18 08:03 Dose: 100 mg Warfarin Sodium (Coumadin) 5 mg PO DAILY@1400 [facility] Last Admin: 03/25/18 14:47 Dose: 5 mg Discontinued Medications Aspirin (Aspirin) 325 mg PO ONETIME ONE Stop: 03/22/18 22:11 Last Admin: 03/22/18 22:57 Dose: 325 mg Aspirin (Aspirin) 325 mg PO DAILY [facility] Last Admin: 03/24/18 08:12 Dose: 325 mg Atorvastatin Calcium (Lipitor) 80 mg PO ONETIME ONE Stop: 03/22/18 22:34 Last Admin: 03/22/18 22:57 Dose: 80 mg Atorvastatin Calcium (Lipitor) 80 mg PO ONETIME ONE Stop: 03/23/18 08:26 Last Admin: 03/23/18 10:15 Dose: 80 mg Clopidogrel Bisulfate (Plavix) 600 mg PO ONETIME ONE Stop: 03/22/18 22:34 Last Admin: 03/22/18 22:58 Dose: 600 mg Diltiazem HCl (Diltiazem) 20 mg IVPUSH ONETIME ONE Stop: 03/22/18 14:32 Last Admin: 03/22/18 14:42 Dose: 20 mg Enoxaparin Sodium (Lovenox) 60 mg SUBCUT ONETIME ONE Stop: 03/22/18 14:33 Last Admin: 03/22/18 14:58 Dose: 60 mg Furosemide (Lasix) 40 mg IVPUSH NOW ONE Stop: 03/23/18 12:29 Last Admin: 03/23/18 13:13 Dose: 40 mg Furosemide (Lasix) 40 mg IVPUSH NOW ONE Stop: 03/23/18 20:01 Last Admin: 03/23/18 19:51 Dose: 40 mg Furosemide (Lasix) 40 mg IVPUSH NOW ONE Stop: 03/23/18 22:12 Last Admin: 03/23/18 22:38 Dose: Not Given Furosemide (Lasix) 40 mg IVPUSH NOW ONE Stop: 03/24/18 12:53 Last Admin: 03/24/18 13:14 Dose: 40 mg Furosemide (Lasix) 40 mg IVPUSH NOW ONE Stop: 03/24/18 18:56 Last Admin: 03/24/18 19:31 Dose: 40 mg Heparin Sodium (Porcine) (Heparin Sodium) 4,000 units IVPUSH ONETIME ONE Stop: 03/22/18 22:55 Last Admin: 03/22/18 23:15 Dose: 4,000 units Heparin Sodium (Porcine) (Heparin Sodium) 1,000 units IVPUSH .BOLUS ONE; Protocol Stop: 03/23/18 13:00 Last Admin: 03/23/18 13:08 Dose: 1,000 units Heparin Sodium (Porcine) (Heparin Sodium) 1,000 units IVPUSH .BOLUS ONE Stop: 03/23/18 19:28 Last Admin: 03/23/18 19:48 Dose: 1,000 units Heparin Sodium (Porcine) (Heparin Sodium) 1,000 units IVPUSH ONETIME ONE Stop: 03/24/18 12:01 Last Admin: 03/24/18 12:06 Dose: 1,000 units Sodium Chloride (Normal Saline) 1,000 mls @ 999 mls/hr IV STAT ONE Stop: 03/22/18 15:31 Last Admin: 03/22/18 14:43 Dose: 999 mls/hr Diltiazem HCl 125 mg/ Sodium (Chloride) 125 mls @ 5 mls/hr IV NOW ONE; Protocol Stop: 03/23/18 16:50 Last Infusion: 03/23/18 02:30 Dose: 0 mg/hr, 0 mls/hr Multivitamins/Minerals 10 ml/Thiamine HCl 100 mg/ Folic Acid 1 mg/ Sodium Chloride 1,011.2 mls @ 125 mls/hr IV ONETIME ONE Stop: 03/23/18 00:31 Last Admin: 03/22/18 16:53 Dose: 125 mls/hr Magnesium Sulfate 2 gm/ Premix 50 mls @ 50 mls/hr IV ONETIME ONE Stop: 03/23/18 22:42 Last Admin: 03/23/18 22:25 Dose: 50 mls/hr Metoprolol Tartrate 5 mg/ (Sodium Chloride) 55 mls @ 100 mls/hr IV ONETIME ONE Stop: 03/23/18 22:15 Last Admin: 03/23/18 22:02 Dose: Not Given Lorazepam (Ativan) 1 mg IVPUSH ONETIME ONE Stop: 03/22/18 15:52 Last Admin: 03/22/18 16:13 Dose: 1 mg Metoprolol Tartrate (Lopressor) 5 mg IVPUSH ONETIME ONE Stop: 03/22/18 20:53 Last Admin: 03/22/18 21:11 Dose: 5 mg Metoprolol Tartrate (Lopressor) 5 mg IVPUSH ONETIME ONE Stop: 03/23/18 04:01 Last Admin: 03/23/18 04:35 Dose: 5 mg Metoprolol Tartrate (Lopressor) 50 mg PO Q12H [facility] Last Admin: 03/23/18 10:16 Dose: 50 mg Metoprolol Tartrate (Lopressor) 50 mg PO TID [facility] Last Admin: 03/24/18 21:24 Dose: 50 mg Metoprolol Tartrate (Lopressor) 25 mg PO ONETIME ONE Stop: 03/23/18 21:53 Last Admin: 03/23/18 22:10 Dose: 25 mg Metoprolol Tartrate (Lopressor) 5 mg IVPUSH ONETIME ONE Stop: 03/23/18 22:01 Last Admin: 03/23/18 22:11 Dose: 5 mg Morphine Sulfate (Morphine) 2 mg IVPUSH Q2H PRN PRN Reason: Pain (severe 7-10) Stop: 03/23/18 17:56 Potassium Chloride (Klor-Con M20) 40 meq PO ONETIME ONE Stop: 03/24/18 19:24 Last Admin: 03/24/18 19:31 Dose: 40 meq - Exam General: Alert, Oriented HEENT: Pupils Equal Neck: Supple, Trachea Midline, No Thyromegaly Lungs: Clear to Auscultation, Normal Respiratory Effort Cardiovascular: Regular Rate, Regular Rhythm, No Murmurs GI/Abdominal Exam: Normal Bowel Sounds, Soft, Non-Tender, No Organomegaly, No Distention Back Exam: Normal Inspection Extremities: Normal Inspection - Problem List & Annotations (1) Chest tightness or pressure SNOMED Code(s): 04623067 Code(s): R07.89 - OTHER CHEST PAIN Status: Acute Current Visit: Yes (2) Atrial fibrillation with RVR SNOMED Code(s): 120075686228081 Code(s): I48.91 - UNSPECIFIED ATRIAL FIBRILLATION Status: Acute Current Visit: Yes (3) Alcohol abuse SNOMED Code(s): 56015600 Code(s): F10.10 - ALCOHOL ABUSE, UNCOMPLICATED Status: Acute Current Visit: Yes (4) Atrial flutter SNOMED Code(s): 0463495 Code(s): I48.92 - UNSPECIFIED ATRIAL FLUTTER Status: Acute Current Visit : Yes (5) Tobacco abuse SNOMED Code(s): 304442321 Code(s): Z72.0 - TOBACCO USE Status: Acute Current Visit: Yes (6) Pityriasis circinata et maculata SNOMED Code(s): 28869352 Code(s): L42 - PITYRIASIS ROSEA Status: Acute Current Visit: Yes (7) Hypertrophic cardiomyopathy SNOMED Code(s): 599454630 Code(s): I42.2 - OTHER HYPERTROPHIC CARDIOMYOPATHY Status: Acute Current Visit: Yes (8) Diastolic heart failure secondary to hypertrophic cardiomyopathy SNOMED Code(s): 562618121, 848116391 Code(s): I50.30 - UNSPECIFIED DIASTOLIC (CONGESTIVE) HEART FAILURE; I42.2 - OTHER HYPERTROPHIC CARDIOMYOPATHY Status: Acute Current Visit: Yes Qualifiers: Heart failure chronicity: unspecified Qualified Code(s): I50.30 - Unspecified diastolic (congestive) heart failure; I42.2 - Other hypertrophic cardiomyopathy - Problem List Review Problem List Initiated/Reviewed/Updated: Yes - My Orders Last 24 Hours: My Active Orders 03/25/18 PROTEIN ELEC INTERP, SERUM [REF] Routine 03/25/18 09:31 EKG 12 Lead [EKG Documentation Completion] [RC] ROUTINE 03/25/18 11:05 PROTEIN ELECTRO, RANDOM URINE Routine 03/25/18 18:30 aPTT [PTT,PARTIAL THROMBOPLSTIN TIME] [COAG] Routine 03/26/18 05:11 CBC W/O DIFF,HEMOGRAM [HEME] AM COMPREHENSIVE METABOLIC PN,CMP [CHEM] AM 03/27/18 05:11 COMPREHENSIVE METABOLIC PN,CMP [CHEM] AM - Plan Plan:: Echo shows nl EF severe left ventricular hypertrophy. suspicious of amyloidosis Assessment and plan 47M hx Afib decompensated diastolic HF with severe LVH suspicious for infiltrative disease such as amyloid afib RVR, trop elevation now converted. 1. decompensated dCHF/afib RVR, I will change the metoprolol to toprol XL 100 tomorrow, he is on coumadin now, he was on heparin for ACS protocol for more than 48 hours. ECG while in SR with repolarization abnormalities. Echo showed pericardial effusion. There was no sign of tamponade. Trop[ trending down now. - continue coumadin/heprin or lovenox for afib - toprol Xl 100 mg po daily - - continue ASA 81, plavix 75 daily, lipitor abdominal fat pad biopsy done today serum electrophoresis , urine electrophoresis sent out - he will need stress test as outpatient F/up cardiology recommendations. Has 5 beats of V tach on monitor- Magnesium and phosphorus were checked and were normal
[2018-03-25] MEDS: Heparin Sod,Pork In 0.45% Nacl 25,000 UNIT/500 ML IV.SOLN IV SCH (17:08)
[2018-03-25] MEDS: atorvaSTATin 40 MG Tab PO SCH (20:00)
[2018-03-25] MEDS ORDERED: Furosemide 40 MG/4 ML VIAL IVPUSH ONE (20:33)
[2018-03-25] MEDS: Enoxaparin 100 MG/1 ML Syringe SUBCUT SCH (23:38)
[2018-03-26 05:54] LABS: CHLORIDE,CL 100 mmol/L (98-107); SODIUM,NA 136 mmol/L (136-148)
[2018-03-26] MEDS: Thiamine 100 MG Tab PO SCH (08:00)
[2018-03-26] MEDS: Clopidogrel 75 MG Tab PO SCH (08:00)
[2018-03-26] MEDS: Aspirin 81 MG Tab.Chew PO SCH (08:00)
[2018-03-26] MEDS: Folic Acid 1 MG Tab PO SCH (08:00)
[2018-03-26] MEDS: Clotrimazole 1% Crm 30 GM Tube TOP SCH (08:00)
[2018-03-26] MEDS: Metoprolol Succinate 100 MG Tab.ER PO SCH (08:00)
[2018-03-26] MEDS ORDERED: Famotidine 20 MG Tab PO SCH (09:00)
[2018-03-26] MEDS: Enoxaparin 100 MG/1 ML Syringe SUBCUT SCH (11:51)
[2018-03-26] MEDS ORDERED: Warfarin 10 MG Tab PO SCH (14:00)
--- NOTE | 2018-03-27 15:34 | PCM.DCSUM1 ---
Discharge Summary - Hospital Course HPI Initial Comments: Patient 47 years old man presented to emergency room because he felt his heart was beating very fast and he was feeling dizziness , sweaty , lightheaded. Patient also had sensation of pressure in the chest for about half an hour 4and 10 in intensity, no radiation, which resolved. Patient smokes pack of cigarettes a day for the past 20 years and he drinks about 1/2-1 pint of vodka a day for the past 30 years. 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 Diagnosis: Stroke: No - Discharge Data Discharge Date: 03/26/18 Discharge Disposition: Home, Self-Care 01 Condition: Good - Discharge Diagnosis/Problem(s) (1) Chest tightness or pressure SNOMED Code(s): 58987746 ICD Code: R07.89 - OTHER CHEST PAIN Status: Acute (2) Atrial fibrillation with RVR SNOMED Code(s): 142000778207202 ICD Code: I48.91 - UNSPECIFIED ATRIAL FIBRILLATION Status: Acute (3) Alcohol abuse SNOMED Code(s): 44427224 ICD Code: F10.10 - ALCOHOL ABUSE, UNCOMPLICATED Status: Acute (4) Atrial flutter SNOMED Code(s): 0925519 ICD Code: I48.92 - UNSPECIFIED ATRIAL FLUTTER Status: Acute (5) Tobacco abuse SNOMED Code(s): 610286245 ICD Code: Z72.0 - TOBACCO USE Status: Acute (6) Pityriasis circinata et maculata SNOMED Code(s): 01443788 ICD Code: L42 - PITYRIASIS ROSEA Status: Acute (7) Hypertrophic cardiomyopathy SNOMED Code(s): 458337751 ICD Code: I42.2 - OTHER HYPERTROPHIC CARDIOMYOPATHY Status: Acute (8) Diastolic heart failure secondary to hypertrophic cardiomyopathy SNOMED Code(s): 057168586, 528134687 ICD Code: I50.30 - UNSPECIFIED DIASTOLIC (CONGESTIVE) HEART FAILURE; I42.2 - OTHER HYPERTROPHIC CARDIOMYOPATHY Status: Acute Qualifiers: Heart failure chronicity: unspecified Qualified Code(s): I50.30 - Unspecified diastolic (congestive) heart failure; I42.2 - Other hypertrophic cardiomyopathy - Patient Summary/Data Consults: Consultations 03/22/18 22:32 Consult to Physician [CONS] Stat Hospital Course: The patient at 47 years old man admitted in the hospital with A. fib with Rvr, he was treated with cardiogenic sleep and also was given metoprolol IV push when necessary and his troponins were positive. 2 sets of troponins were trended and they were coming down. Patient did not have chest pain on the floor but he says he had some chest pressures and his heart was predicted to 140 before he came to emergency room. He was seen by the filler mixer who assessed him as having demand ischemia. During the time when his troponin became positive and she was started on heparin injury and was given aspirin 325 mg by mouth 1 dose and Plavix 600 mg by mouth 1 dose and was continually aspirin 1 mg by mouth daily and Plavix 75 mg by mouth daily. He was also given atorvastatin 80 mg 1 dose when necessary. And was continue with atorvastatin 40 mg by mouth daily. He had mild elevation in the liver enzymes and upper discharge he was discharged only with atorvastatin 20 mg by mouth daily. Patient was started on Coumadin, and today his INR was 1.26, patient was discharged home with the Lovenox 1 mg/kg every 12 hours for another 3 days and Coumadin 10 mg by mouth daily for another 2 days to follow-up overweight, Coumadin clinic on Thursday. He was giving prescription for INR and LFTs to have done done on Thursday. Patient converted to sinus rhythm on the floor he had echocardiogram which showed severe hypertrophy of the posterior wall of the of the left ventricle and increased thickness of the right ventricle findings suggestive of amyloidosis. He had abdomen fat biopsy sent to pathology for amyloidosis and it was negative. Urine protein electrophoresis, and serum protein electrophoresis were sent out. 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 Patient to follow-up with cardiology as outpatient and with PCP. In the hospital he was on [place] protocol, and he was discharged home with down metoprolol extended release 100 mg by mouth daily timeline 100 mg by mouth daily , folic acid 1 mg by mouth daily and Lovenox and Coumadin, aspirin 81 mg by mouth daily and Plavix 75 mg by mouth daily and Pepcid 20 mg by mouth daily. Patient was advised to not smoke and does not drink alcohol. P - Patient Instructions Diet: Usual Diet as Tolerated Activity: As Tolerated Showering/Bathing: No Showering - Discharge Plan Prescriptions/Med Rec: Aspirin 81 mg PO DAILY #90 tab.chew atorvaSTATin [Lipitor] 10 mg PO BEDTIME #30 tab Clopidogrel [Plavix] 75 mg PO DAILY #90 tablet Clotrimazole [Lotrimin AF 1% Crm] 1 gm TOP BID #1 tube Enoxaparin [Lovenox] 70 mg SUBCUT Q12H #6 syringe Famotidine [Pepcid] 20 mg PO DAILY #90 tablet Folic Acid 1 mg PO DAILY #90 tablet Metoprolol Succinate [Toprol XL 100mg] 100 mg PO DAILY #90 tab.er Thiamine [Vitamin B-1] 100 mg PO DAILY #90 tablet Warfarin [Coumadin] 10 mg PO DAILY@1400 #3 tablet Home Medications: Home Meds Aspirin 81 mg PO DAILY #90 tab.chew 03/26/18 [Rx] Clopidogrel [Plavix] 75 mg PO DAILY #90 tablet 03/26/18 [Rx] Clotrimazole [Lotrimin AF 1% Crm] 1 gm TOP BID #1 tube 03/26/18 [Rx] Enoxaparin [Lovenox] 70 mg SUBCUT Q12H #6 syringe 03/26/18 [Rx] Famotidine [Pepcid] 20 mg PO DAILY #90 tablet 03/26/18 [Rx] Folic Acid 1 mg PO DAILY #90 tablet 03/26/18 [Rx] Metoprolol Succinate [Toprol XL 100mg] 100 mg PO DAILY #90 tab.er 03/26/18 [Rx] Thiamine [Vitamin B-1] 100 mg PO DAILY #90 tablet 03/26/18 [Rx] Warfarin [Coumadin] 10 mg PO DAILY@1400 #3 tablet 03/26/18 [Rx] atorvaSTATin [Lipitor] 10 mg PO BEDTIME #30 tab 03/26/18 [Rx] Patient Handouts: Steps to Quit Smoking, [id number], Hypertrophic Cardiomyopathy, Alcohol Abuse and Nutrition, Heart Failure, [id number], Atrial Fibrillation, [id number] Forms: ED Department Discharge Referrals: Puma Ayers MD [Physician] - 04/05/18 10:30 am (Bring ID, insurance cards, and physical medications with to appointment) PCP,None [Primary Care Provider] - Sharad Rasmussen MD [Physician] - 04/01/18 11:00 am (Bring ID, insurance cards, and all physical medications you are taking in to appointment at this time.) - General Info Date of Service: 03/26/18 - Review of Systems General: Reports: No Symptoms HEENT: Reports: No Symptoms Pulmonary: Reports: No Symptoms Cardiovascular: Reports: No Symptoms Gastrointestinal: Reports: No Symptoms Genitourinary: Reports: No Symptoms Musculoskeletal: Reports: No Symptoms Skin: Reports: No Symptoms Neurological: Reports: No Symptoms Psychiatric: Reports: No Symptoms - Patient Data Vitals - Most Recent: Last Vital Signs Temp 97.2 F 03/26/18 12:00 Pulse 74 03/26/18 08:00 Resp 16 03/26/18 12:00 BP 124/85 03/26/18 12:00 Pulse Ox 98 03/26/18 12:00 Weight - Most Recent: 153 lb 11.2 oz Med Orders - Current: Current Medications Discontinued Medications Acetaminophen (Tylenol) 650 mg PO Q4H PRN PRN Reason: Pain (Mild 1-3)/fever Albuterol/Ipratropium (Duoneb 3.0-0.5 Mg/3 Ml) 3 ml NEB Q4HRRT PRN PRN Reason: Shortness Of Breath/wheezing Aspirin (Aspirin) 325 mg PO ONETIME ONE Stop: 03/22/18 22:11 Last Admin: 03/22/18 22:57 Dose: 325 mg Aspirin (Aspirin) 325 mg PO DAILY [facility] Last Admin: 03/24/18 08:12 Dose: 325 mg Aspirin (Aspirin) 81 mg PO DAILY [facility] Last Admin: 03/26/18 08:00 Dose: 81 mg Atorvastatin Calcium (Lipitor) 80 mg PO ONETIME ONE Stop: 03/22/18 22:34 Last Admin: 03/22/18 22:57 Dose: 80 mg Atorvastatin Calcium (Lipitor) 80 mg PO ONETIME ONE Stop: 03/23/18 08:26 Last Admin: 03/23/18 10:15 Dose: 80 mg Atorvastatin Calcium (Lipitor) 40 mg PO BEDTIME [facility] Last Admin: 03/25/18 20:00 Dose: 40 mg Clopidogrel Bisulfate (Plavix) 600 mg PO ONETIME ONE Stop: 03/22/18 22:34 Last Admin: 03/22/18 22:58 Dose: 600 mg Clopidogrel Bisulfate (Plavix) 75 mg PO DAILY [facility] Last Admin: 03/26/18 08:00 Dose: 75 mg Clotrimazole (Lotrimin Af 1% Crm) 1 gm TOP BID [facility] Last Admin: 03/26/18 08:00 Dose: 1 applic Diltiazem HCl (Diltiazem) 20 mg IVPUSH ONETIME ONE Stop: 03/22/18 14:32 Last Admin: 03/22/18 14:42 Dose: 20 mg Enoxaparin Sodium (Lovenox) 60 mg SUBCUT ONETIME ONE Stop: 03/22/18 14:33 Last Admin: 03/22/18 14:58 Dose: 60 mg Enoxaparin Sodium (Lovenox) 70 mg SUBCUT Q12H [facility] Last Admin: 03/26/18 11:51 Dose: 70 mg Famotidine (Pepcid) 20 mg IVPUSH DAILY [facility] Last Admin: 03/25/18 08:02 Dose: 20 mg Famotidine (Pepcid) 20 mg PO DAILY [facility] Last Admin: 03/26/18 08:00 Dose: 20 mg Folic Acid (Folic Acid) 1 mg PO DAILY [facility] Last Admin: 03/26/18 08:00 Dose: 1 mg Furosemide (Lasix) 40 mg IVPUSH NOW ONE Stop: 03/23/18 12:29 Last Admin: 03/23/18 13:13 Dose: 40 mg Furosemide (Lasix) 40 mg IVPUSH NOW ONE Stop: 03/23/18 20:01 Last Admin: 03/23/18 19:51 Dose: 40 mg Furosemide (Lasix) 40 mg IVPUSH NOW ONE Stop: 03/23/18 22:12 Last Admin: 03/23/18 22:38 Dose: Not Given Furosemide (Lasix) 40 mg IVPUSH NOW ONE Stop: 03/24/18 12:53 Last Admin: 03/24/18 13:14 Dose: 40 mg Furosemide (Lasix) 40 mg IVPUSH NOW ONE Stop: 03/24/18 18:56 Last Admin: 03/24/18 19:31 Dose: 40 mg Furosemide (Lasix) 40 mg IVPUSH NOW ONE Stop: 03/25/18 20:34 Last Admin: 03/25/18 20:42 Dose: 40 mg Heparin Sodium (Porcine) (Heparin Sodium) 4,000 units IVPUSH ONETIME ONE Stop: 03/22/18 22:55 Last Admin: 03/22/18 23:15 Dose: 4,000 units Heparin Sodium (Porcine) (Heparin Sodium) 1,000 units IVPUSH .BOLUS ONE; Protocol Stop: 03/23/18 13:00 Last Admin: 03/23/18 13:08 Dose: 1,000 units Heparin Sodium (Porcine) (Heparin Sodium) 1,000 units IVPUSH .BOLUS ONE Stop: 03/23/18 19:28 Last Admin: 03/23/18 19:48 Dose: 1,000 units Heparin Sodium (Porcine) (Heparin Sodium) 1,000 units IVPUSH ONETIME ONE Stop: 03/24/18 12:01 Last Admin: 03/24/18 12:06 Dose: 1,000 units Sodium Chloride (Normal Saline) 1,000 mls @ 999 mls/hr IV STAT ONE Stop: 03/22/18 15:31 Last Admin: 03/22/18 14:43 Dose: 999 mls/hr Diltiazem HCl 125 mg/ Sodium (Chloride) 125 mls @ 5 mls/hr IV NOW ONE; Protocol Stop: 03/23/18 16:50 Last Infusion: 03/23/18 02:30 Dose: 0 mg/hr, 0 mls/hr Multivitamins/Minerals 10 ml/Thiamine HCl 100 mg/ Folic Acid 1 mg/ Sodium Chloride 1,011.2 mls @ 125 mls/hr IV ONETIME ONE Stop: 03/23/18 00:31 Last Admin: 03/22/18 16:53 Dose: 125 mls/hr Heparin Sodium/Sodium Chloride (Heparin-1/2ns 25,000 Units/500) 25,000 unit in 500 mls @ 17.494 mls/hr IV TITRATE JAYME; Protocol Last Admin: 03/25/18 17:08 Dose: 18 units/kg/hr, 26.241 mls/hr Magnesium Sulfate 2 gm/ Premix 50 mls @ 50 mls/hr IV ONETIME ONE Stop: 03/23/18 22:42 Last Admin: 03/23/18 22:25 Dose: 50 mls/hr Metoprolol Tartrate 5 mg/ (Sodium Chloride) 55 mls @ 100 mls/hr IV ONETIME ONE Stop: 03/23/18 22:15 Last Admin: 03/23/18 22:02 Dose: Not Given Lorazepam (Ativan) 1 mg IVPUSH ONETIME ONE Stop: 03/22/18 15:52 Last Admin: 03/22/18 16:13 Dose: 1 mg Metoprolol Succinate (Toprol Xl) 100 mg PO DAILY [facility] Last Admin: 03/26/18 08:00 Dose: 100 mg Metoprolol Tartrate (Lopressor) 5 mg IVPUSH ONETIME ONE Stop: 03/22/18 20:53 Last Admin: 03/22/18 21:11 Dose: 5 mg Metoprolol Tartrate (Lopressor) 5 mg IVPUSH ONETIME ONE Stop: 03/23/18 04:01 Last Admin: 03/23/18 04:35 Dose: 5 mg Metoprolol Tartrate (Lopressor) 50 mg PO Q12H [facility] Last Admin: 03/23/18 10:16 Dose: 50 mg Metoprolol Tartrate (Lopressor) 50 mg PO TID [facility] Last Admin: 03/24/18 21:24 Dose: 50 mg Metoprolol Tartrate (Lopressor) 25 mg PO ONETIME ONE Stop: 03/23/18 21:53 Last Admin: 03/23/18 22:10 Dose: 25 mg Metoprolol Tartrate (Lopressor) 5 mg IVPUSH ONETIME ONE Stop: 03/23/18 22:01 Last Admin: 03/23/18 22:11 Dose: 5 mg Metoprolol Tartrate (Lopressor) 5 mg IVPUSH Q4H PRN PRN Reason: hr more [id number] Morphine Sulfate (Morphine) 2 mg IVPUSH Q2H PRN PRN Reason: Pain (severe 7-10) Stop: 03/23/18 17:56 Potassium Chloride (Klor-Con M20) 40 meq PO ONETIME ONE Stop: 03/24/18 19:24 Last Admin: 03/24/18 19:31 Dose: 40 meq Sodium Chloride (Saline Flush) 10 ml FLUSH ASDIRECTED PRN PRN Reason: Keep Vein Open Sodium Chloride (Saline Flush) 2.5 ml FLUSH ASDIRECTED PRN PRN Reason: Keep Vein Open Sodium Chloride (Saline Flush) 10 ml FLUSH ASDIRECTED PRN PRN Reason: Keep Vein Open Sodium Chloride (Saline Flush) 2.5 ml FLUSH ASDIRECTED PRN PRN Reason: Keep Vein Open Thiamine HCl (Vitamin B-1) 100 mg PO DAILY [facility] Last Admin: 03/26/18 08:00 Dose: 100 mg Warfarin Sodium (Coumadin) 5 mg PO DAILY@1400 [facility] Last Admin: 03/25/18 14:47 Dose: 5 mg Warfarin Sodium (Coumadin) 10 mg PO DAILY@1400 [facility] Last Admin: 03/26/18 13:19 Dose: 10 mg - Exam General: Reports: Alert, Oriented, Cooperative HEENT: Reports: Pupils Equal, Pupils Reactive Neck: Reports: Supple, Trachea Midline, No JVD, No Thyromegaly Lungs: Reports: Clear to Auscultation, Normal Respiratory Effort Cardiovascular: Reports: Regular Rate GI/Abdominal Exam: Normal Bowel Sounds, Soft, Non-Tender, No Organomegaly Back Exam: Reports: Normal Inspection Skin: Reports: Warm, Dry, Intact Neurological: Reports: No New Focal Deficit Psy/Mental Status: Reports: Alert, Normal Affect
== END 2018-03-26 13:45 | disposition home or self-care (01) | DRG 308 ==
LOC: MW.ED 14:17 → MW.ICU 16:41 → OBSVTOIN 03-23 12:46 → MW.ICU 03-23 14:49
PROVIDERS: ADMIT Internal Medicine; ATTEND Internal Medicine
PROC: 0JB83ZX Excision of Abdomen Subcutaneous Tissue and Fascia, Percutaneous Approach, Diagnostic (ICD-10-PCS; principal; 2018-03-25)
DX: I48.1 Persistent atrial fibrillation (principal); I50.33 Acute on chronic diastolic (congestive) heart failure; I24.8 Other forms of acute ischemic heart disease; F17.210 Nicotine dependence, cigarettes, uncomplicated; F10.10 Alcohol abuse, uncomplicated; I48.92 Unspecified atrial flutter; L42 Pityriasis rosea; I42.2 Other hypertrophic cardiomyopathy; D89.2 Hypergammaglobulinemia, unspecified; Z91.14 Patient's other noncompliance with medication regimen; Z79.899 Other long term (current) drug therapy; F41.9 Anxiety disorder, unspecified; I47.2 Ventricular tachycardia; E78.1 Pure hyperglyceridemia
CPT/HCPCS: 20206; 36415; 71045; 71045-26; 80053; 80061; 80305-QW; 81003; 83036; 83735; 83880; 84100; 84155; 84156; 84165; 84166; 84443; 84484; 85025; 85027; 85610; 85730; 93005; 93306; 94667; 96361; 96365; 96366; 96367; 96368; 96372; 96375; 96376; 99285-25; A9270-GY; G0378; G0480; J1644; J1650; J1940; J2060; J3411; J3475; J3490; J7030; J7040